=== PATIENT | female | born 1955 | race Caucasian/White ===

== ENCOUNTER 2017-08-28 17:05 | Inpatient (IN) ==
[2017-08-28] MEDS ORDERED: Ipratropium/Albuterol Neb 3 ML IH ONE (17:26)
[2017-08-28] MEDS ORDERED: Albuterol 2.5 MG/3 ML NEBULIZER IH ONE (17:26)
[2017-08-28] MEDS ORDERED: methylPREDNISolone 125 MG/2 ML VIAL IVP ONE (17:26)
--- NOTE | 2017-08-28 17:30 | Emergency Department Note ---
Disposition Clinical Impression: COPD exacerbation Pneumonia Qualifiers: Pneumonia type: due to unspecified organism Laterality: left Lung location: lower lobe of lung Qualified Code(s): J18.1 - Lobar pneumonia, unspecified organism Disposition: Admitted As Inpatient Condition: Good Time of Disposition: 19:43 SOB HPI - General Chief Complaint: ED Shortness of Breath/Dyspnea Stated Complaint: difficulty breathing Time Seen by Provider: 08/28/17 17:25 Source: patient, EMS Mode of arrival: ambulatory Limitations: no limitations Nursing Notes Reviewed: Yes Vital Signs Reviewed: Yes - History of Present Illness 62-year-old female with a history of COPD, atrial fibrillation, heart disease presents with a several month history of increasing difficulty breathing. She states is been going on for at least 2-3 months. She has a chronic cough. Her cough is nonproductive. She states she quit smoking 2 days ago. She denies chest pain. No fever. She has some mild leg swelling. She has a nebulizer at home but states she has not used it for a couple of days. She received a nebulizer treatment in route. No fever. Pt Subjective Complaint: shortness of breath, cough Onset (ago): month(s) (2-3) Severity: moderate Consistency/Duration: constant Improves with: oxygen, rest Worsens with: exertion, coughing Known history of: COPD Associated symptoms: Reports: denies other symptoms Treatment prior to arrival: oxygen, bronchodilator (Nebulizer squad) - Related Data Home Medications Medication Instructions Recorded Confirmed Albuterol Neb [Proventil Neb] 2.5 mg IH ONCE 07/06/15 08/28/17 Albuterol Sulfate [Ventolin Hfa] 18 gm IH 07/06/15 07/06/15 Ibuprofen [Motrin] 800 mg PO Q8HR 07/06/15 08/28/17 Montelukast [Singulair] 10 mg PO DAILY 07/06/15 08/28/17 Loratadine [Allergy Relief] 10 mg PO DAILY 12/09/16 08/28/17 Aspirin 81 mg PO DAILY 08/28/17 08/28/17 Cyclobenzaprine [Flexeril] 10 mg PO TID 08/28/17 08/28/17 Gabapentin [Neurontin] 300 mg PO TID 08/28/17 08/28/17 Metoprolol [Lopressor] 12.5 mg PO BID 08/28/17 08/28/17 Pravastatin Sodium [Pravachol] 20 mg PO DAILY 08/28/17 08/28/17 Topiramate [Topamax] 100 mg PO BID 08/28/17 08/28/17 Chantix Continuing Months Pack 1 mg PO DAILY 08/29/17 08/29/17 Previous Rx's Medication Instructions Recorded Albuterol Neb [Proventil Neb] 2.5 mg IH QID 2 Days inhsol 12/09/16 Allergies Allergy/AdvReac Type Severity Reaction Status Date / Time acetaminophen AdvReac Hallucinati Verified 08/28/17 17:06 [From Darvocet-N] ng duloxetine [From Cymbalta] AdvReac Nausea Verified 08/28/17 17:06 fentanyl AdvReac Vomiting Verified 08/28/17 17:06 propoxyphene AdvReac Hallucinati Verified 08/28/17 17:06 [From Darvocet-N] ng Sulfa (Sulfonamide AdvReac Rash Verified 08/28/17 17:06 Antibiotics) Tetracycline AdvReac Nausea Verified 08/28/17 17:06 All systems ED: reviewed and negative except as stated. Constitutional: Denies: fever, chills ENT ED: Denies: congestion Cardiovascular: Denies: chest pain, palpitations Respiratory: Reports: cough, dyspnea, wheezes. 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 Absent: scleral icterus - ENT ENT exam: normal oropharynx, mucous membranes moist - Neck Neck exam: Present: normal inspection, full ROM, trachea midline. Absent: lymphadenopathy - Chest Chest inspection: Present: normal inspection, symmetric chest wall rise - Respiratory Respiratory exam: Present: wheezes, prolonged expiratory phase (Moderate bilateral expiratory), other (Decreased breath sounds in the bases). Absent: respiratory distress - Cardiovascular Cardiovascular exam: Present: regular rate, normal rhythm. Absent: systolic murmur, diastolic murmur, gallop - Abdominal Exam Abdominal exam: Present: soft, Non-Tender, normal bowel sounds. Absent: organomegaly, mass - Extremities Exam Extremities exam: Present: normal inspection, full ROM, normal capillary refill. Absent: tenderness, pedal edema, calf tenderness - Neurological Exam Neurological exam: Present: alert, oriented X3, normal gait. Absent: motor sensory deficit - Psychiatric Psychiatric exam: Present: normal affect, normal mood - Skin Skin exam: Present: warm, dry, intact, normal color. Absent: cyanosis, diaphoresis Course - Reevaluation(s) Reevaluation #1: Improved. Still has significant wheezing. Would benefit from hospitalization. I discussed case with Dr. Miguel. He has accepted the patient for observation admission. Time: 19:41 Vital Signs Temperature 97.6 F 08/28/17 17:14 Pulse Rate 95 08/28/17 17:14 Respiratory Rate 24 08/28/17 17:14 Blood Pressure 101/77 08/28/17 17:14 O2 Sat by Pulse Oximetry 87 08/28/17 17:14 Temperature 97.9 F 08/29/17 00:02 Pulse Rate 99 08/29/17 00:02 Respiratory Rate 18 08/29/17 00:43 Blood Pressure 103/60 08/29/17 00:02 O2 Sat by Pulse Oximetry 89 08/29/17 00:43 Oxygen Delivery Oxygen Delivery Nasal Cannula Shortness of Breath/Dyspnea - [facility] Narrative Medical decision making narrative: Radiographically she has a left lower lobe infiltrate. Clinically she has pneumonia with a COPD exacerbation. I do not seen any evidence of cardiac issues. She is having no chest pain. She will be admitted for observation and further treatment. - Differential Diagnosis Likely: acute exacerbation of chronic obstructive airways disease, congestive heart failure, pneumonia, asthma with exacerbation, pulmonary embolism, pneumothorax, arrhythmia - Lab Data Lab results reviewed: Yes I reviewed the patient's lab results. Result diagrams: 08/28/17 17:44 08/28/17 17:44 Lab Results 08/28/17 08/28/17 08/28/17 Range/Units 17:44 17:44 17:44 WBC 7.5 (4.3-11.1) K/mcL RBC 5.30 H (3.82-4.97) M/mcL Hgb 16.2 H (11.5-15.4) g/dL Hct 48.3 H (35.3-44.9) % MCV 91.1 (83.0-100.0) fL MCH 30.6 (28.0-33.3) pg MCHC 33.5 (31.6-35.5) g/dL RDW 13.2 (11.5-14.5) % Plt Count 176 (140-400) K/mcL MPV 11.8 (9.4-12.4) fL Immature Gran % 0.5 (0-4) % Seg Neutrophils % 78.6 % Lymphocytes % 10.2 % Monocytes % 9.9 % Eosinophils % 0.1 % Basophils % 0.7 % Neutrophils # 5.9 (1.6-8.9) K/mcL Lymphocytes # 0.8 (0.6-4.6) K/mcL Monocytes # 0.7 (0.0-1.3) K/mcL Eosinophils # 0.0 (0.0-0.6) K/mcL Basophils # 0.1 (0.0-0.2) K/mcL Sodium 138 (136-145) mEq/L Potassium 3.4 L (3.5-4.5) mEq/L Chloride 109 (98-109) mEq/L Carbon Dioxide 17 L (19-29) mEq/L BUN 22 H (7-20) mg/dL Creatinine 0.91 (0.57-1.11) mg/dL Est GFR ( Amer) > 60 (> 60) Est GFR (Non-Af Amer) > 60 (> 60) BUN/Creatinine Ratio 24 (6-26) Glucose 130 H (70-99) mg/dL Calculated Osmolality 291 (280-300) Calcium 8.8 (8.6-10.8) mg/dL Total Bilirubin 0.5 (0.2-1.2) mg/dL AST 24 (5-34) Units/L ALT 10 (0-55) Units/L Alkaline Phosphatase 115 (38-126) Units/L Troponin I 0.02 (0-0.03) ng/mL B-Natriuretic Peptide (0-100) pg/mL Serum Total Protein 7.3 (6.0-8.3) g/dL Albumin 3.5 (3.5-5.0) g/dL Globulin 3.8 H (2.4-3.5) g/dL Albumin/Globulin Ratio 0.9 L (1.1-2.2) 12/18/17 Range/Units 17:44 WBC (4.3-11.1) K/mcL RBC (3.82-4.97) M/mcL Hgb (11.5-15.4) g/dL Hct (35.3-44.9) % MCV (83.0-100.0) fL MCH (28.0-33.3) pg MCHC (31.6-35.5) g/dL RDW (11.5-14.5) % Plt Count (140-400) K/mcL MPV (9.4-12.4) fL Immature Gran % (0-4) % Seg Neutrophils % % Lymphocytes % % Monocytes % % Eosinophils % % Basophils % % Neutrophils # (1.6-8.9) K/mcL Lymphocytes # (0.6-4.6) K/mcL Monocytes # (0.0-1.3) K/mcL Eosinophils # (0.0-0.6) K/mcL Basophils # (0.0-0.2) K/mcL Sodium (136-145) mEq/L Potassium (3.5-4.5) mEq/L Chloride (98-109) mEq/L Carbon Dioxide (19-29) mEq/L BUN (7-20) mg/dL Creatinine (0.57-1.11) mg/dL Est GFR ( Amer) (> 60) Est GFR (Non-Af Amer) (> 60) BUN/Creatinine Ratio (6-26) Glucose (70-99) mg/dL Calculated Osmolality (280-300) Calcium (8.6-10.8) mg/dL Total Bilirubin (0.2-1.2) mg/dL AST (5-34) Units/L ALT (0-55) Units/L Alkaline Phosphatase (38-126) Units/L Troponin I (0-0.03) ng/mL B-Natriuretic Peptide 197 H (0-100) pg/mL Serum Total Protein (6.0-8.3) g/dL Albumin (3.5-5.0) g/dL Globulin (2.4-3.5) g/dL Albumin/Globulin Ratio (1.1-2.2) - Radiology Data Radiology results reviewed: Yes I reviewed the patient's radiology results. Impressions Chest X-Ray 08/28/17 17:26 IMPRESSION: Left basilar airspace disease superimposed on diffuse fibrotic changes may represent atelectasis or pneumonia. D/ / Aaron Bojorquez MD / Aaron Bojorquez MD Interpreting Provider: Aaron Bojorquez MD - EKG Data EKG attestation: Yes I reviewed and interpreted this EKG. EKG results narrative: Sinus tachycardia, rate of 123, and a more ST segment depression in the inferior lateral leads. Rhythm strip shows sinus tachycardia with rate 123, ND interval 160 ms, QRS 78 ms with no other ectopy as interpreted by me. No old EKG available for comparison.
[2017-08-28 18:08] LABS: Basophils # 0.1 K/mcL (0.0-0.2); Basophils % 0.7 %; Eosinophils % 0.1 %; Hematocrit 48.3 % (35.3-44.9); Hemoglobin 16.2 g/dL (11.5-15.4); Immature Granulocytes % 0.5 % (0-4); Lymphocytes # 0.8 K/mcL (0.6-4.6); Lymphocytes % 10.2 %; Mean Corpuscular HGB Conc 33.5 g/dL (31.6-35.5); Mean Corpuscular Hemoglobin 30.6 pg (28.0-33.3); Mean Corpuscular Volume 91.1 fL (83.0-100.0); Mean Platelet Volume 11.8 fL (9.4-12.4); Monocytes # 0.7 K/mcL (0.0-1.3); Monocytes % 9.9 %; Neutrophils # 5.9 K/mcL (1.6-8.9); Platelet Count 176 K/mcL (140-400); Red Cell Distribution Width 13.2 % (11.5-14.5); Segmented Neutrophils % 78.6 %
[2017-08-28 18:26] LABS: Alanine Aminotransferase 10 Units/L (0-55); Albumin 3.5 g/dL (3.5-5.0); Albumin/Globulin Ratio 0.9 (1.1-2.2); Alkaline Phosphatase 115 Units/L (38-126); Aspartate Amino Transferase 24 Units/L (5-34); BUN/Creatinine Ratio 24 (6-26); Bilirubin,Total 0.5 mg/dL (0.2-1.2); Blood Urea Nitrogen 22 mg/dL (7-20); Calcium 8.8 mg/dL (8.6-10.8); Carbon Dioxide 17 mEq/L (19-29); Chloride 109 mEq/L (98-109); Globulin 3.8 g/dL (2.4-3.5); Glucose 130 mg/dL (70-99); Osmolality,Calculated 291 (280-300); Potassium 3.4 mEq/L (3.5-4.5); Sodium 138 mEq/L (136-145); Total Protein 7.3 g/dL (6.0-8.3); eGFR For African Americans > 60 (> 60); eGFR For Non-African Americans > 60 (> 60)
[2017-08-28] MEDS ORDERED: Azithromycin 500 MG in D5% in Water 250 ML IVPB ONE (18:59)
[2017-08-28] MEDS ORDERED: Acetaminophen 325 MG TABLET PO PRN (20:41)
[2017-08-28] MEDS ORDERED: Naloxone 0.4 MG/ML INJ IVP PRN (20:41)
[2017-08-28] MEDS: Topiramate 100 MG TABLET PO SCH (22:53)
[2017-08-28] MEDS: Gabapentin 300 MG CAPSULE PO SCH (22:53)
[2017-08-28] MEDS: methylPREDNISolone 125 MG/2 ML VIAL IVP SCH (23:01)
[2017-08-29] MEDS: Ibuprofen 800 MG TABLET PO SCH ×3 (00:35→18:39)
[2017-08-29] MEDS: Ipratropium/Albuterol Neb 3 ML IH SCH ×4 (00:43→14:43)
[2017-08-29] MEDS: *HR* Enoxaparin 40 MG/0.4 ML SYRINGE SQ SCH (05:50)
[2017-08-29] MEDS: methylPREDNISolone 125 MG/2 ML VIAL IVP SCH ×3 (05:51→21:00)
[2017-08-29] MEDS: Topiramate 100 MG TABLET PO SCH ×2 (08:47→19:56)
[2017-08-29] MEDS: Aspirin 81 MG TAB.CHEW PO SCH (08:47)
[2017-08-29] MEDS: Gabapentin 300 MG CAPSULE PO SCH ×3 (08:47→19:56)
[2017-08-29] MEDS ORDERED: Loratadine 10 MG TABLET PO SCH (09:00)
[2017-08-29] MEDS: Budesonide/Formoterol 160/4.5 MDI IH SCH ×2 (14:50→21:12)
--- NOTE | 2017-08-29 14:56 | Internal Med History&Physical ---
Date of Encounter: 08/29/17 Time of Encounter: 14:30 Assessment and Plan (1) COPD exacerbation Current visit: Yes Status: Acute She has been started on Rocephin and Zithromax. (2) Hypertension Current visit: Yes Status: Chronic Continue Metoprolol Qualifiers: Hypertension type: essential hypertension Qualified Code(s): I10 - Essential (primary) hypertension (3) Azotemia Current visit: Yes Status: Acute We will give IV fluids and recheck labs in a.m. (4) Hypokalemia Current visit: Yes Status: Acute We will give supplemental potassium and recheck labs in a.m. (5) Lung cancer Current visit: Yes Status: Acute Will order chest CT to further evaluate. Qualifiers: Laterality: unspecified laterality Lung location: unspecified part of lung Qualified Code(s): C34.90 - Malignant neoplasm of unspecified part of unspecified bronchus or lung Internal Medicine - H&P: HPI Chief complaint: Dyspnea Admitted From: Emergency Dept Plans for Post Hospital Care: Home History of present illness: Ms. Phillips is a 62 year old female who came to emergency room stating she had increasing dyspnea the past 3 months with notable worsening in the days leading up to coming to emergency room. She had minimal cough and no significant pain. She was evaluated in emergency room and felt have exacerbation of COPD. She was admitted to [facility] floor for ongoing care needs. Her respiratory history is significant for having smoked from age [age] a total of 47 years. She smoked up to 2 packs per day. She had pulmonary function tests several years ago and was told she had asthma, COPD, and chronic bronchitis. She was prescribed oxygen but states she only wears it when necessary. She admits she has not consistently taken all of her pulmonary regimen medications recently. Past Med Surg Social Fam HX - Past Medical History Medical history: atrial fibrillation, cancer, COPD, GERD, hypertension Psychiatric history: anxiety, depression, panic disorder - Past Surgical History Surgical History: cataract, cholecystectomy - Social History Smoking Status: Current every day smoker Packs per day: 3-4 cigs Smokeless Tobacco Status: No Alcohol use: none Drug use: none Internal Medicine - H&P: Meds Albuterol Neb [Proventil Neb] 2.5 mg IH ONCE 07/06/15 [History] Albuterol Sulfate [Ventolin Hfa] 18 gm IH 07/06/15 [History] Ibuprofen [Motrin] 800 mg PO Q8HR 07/06/15 [History] Montelukast [Singulair] 10 mg PO DAILY 07/06/15 [History] Albuterol Neb [Proventil Neb] 2.5 mg IH QID 2 Days inhsol 12/09/16 [Rx] Loratadine [Allergy Relief] 10 mg PO DAILY 12/09/16 [History] Aspirin 81 mg PO DAILY 08/28/17 [History] Cyclobenzaprine [Flexeril] 10 mg PO TID 08/28/17 [History] Gabapentin [Neurontin] 300 mg PO TID 08/28/17 [History] Metoprolol [Lopressor] 12.5 mg PO BID 08/28/17 [History] Pravastatin Sodium [Pravachol] 20 mg PO DAILY 08/28/17 [History] Topiramate [Topamax] 100 mg PO BID 08/28/17 [History] Chantix Continuing Months Pack 1 mg PO DAILY 08/29/17 [History] 3 Allergy/AdvReac Type Severity Reaction Status Date / Time acetaminophen AdvReac Hallucinati Verified 08/28/17 17:06 [From Darvocet-N] ng duloxetine [From Cymbalta] AdvReac Nausea Verified 08/28/17 17:06 fentanyl AdvReac Vomiting Verified 08/28/17 17:06 propoxyphene AdvReac Hallucinati Verified 08/28/17 17:06 [From Darvocet-N] ng Sulfa (Sulfonamide AdvReac Rash Verified 08/28/17 17:06 Antibiotics) Tetracycline AdvReac Nausea Verified 08/28/17 17:06 All Systems PM: A 10-system review of systems was performed and is negative for pertinent findings except as documented above in the HPI. Review of systems: Gen.: She states her weight has increased approximately 20 pounds in the past year Cardiovascular: She has history of hypertension and atrial fibrillation. She denies [place] heart failure DVT or pulmonary embolus. She is not on OAC for atrial fib Respiratory: As per history of present illness GI: She has had cholecystectomy. She denies disorders of her liver or exocrine pancreas : She denies disorders of her kidney or bladder Neurologic: She has frequent headaches. She has neuropathy and chronic low back pain. She denies large distribution strokes. 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 She did not have postoperative chemotherapy or XRT. She reports most recent CAT scan chest was one year ago. She has history of anemia. Psychiatric: She has anxiety and panic attacks. She denies other mental health issues Musk skeletal: She has spinal stenosis. She has DJD but no known gout or other bone joint or muscle disorders. - Constitutional Vitals: Temp Pulse Resp BP Pulse Ox 98.3 F 90 22 107/73 93 08/29/17 10:16 08/29/17 10:16 08/29/17 10:16 08/29/17 10:16 08/29/17 10:16 Exam: Gen.: She is a well developed well-nourished female sitting in bed who appears in minimal respiratory distress at present time HEENT: Head is atraumatic and normocephalic. Eyes: EOMI. There is no scleral icterus. Mouth: Mucosa is moist. Neck: Supple and nontender. There is no thyromegaly or adenopathy noted. Heart: Regular without murmurs gallops or ectopics Lungs: She has diminished breath sounds diffusely. No wheezes or crackles are heard. Abdomen: Soft and nontender. No masses or guarding noted. Extremities: There is no cyanosis edema or clubbing noted. Dorsalis pedis and posterior tibial pulses are 1-2 over 2 bilaterally. Neurologic: Mental status: She is talkative and a good historian. Cranial nerves: Smile is symmetric. Forehead wrinkles bilaterally. Tongue protrudes midline. EOMI. Motor: There is no pronator drift. Cerebellar: Bulgarian nose is intact bilaterally. Skin: Warm and dry Internal Med - H&P Results - Labs CBC & Chem 7: 08/28/17 17:44 08/28/17 17:44
--- NOTE | 2017-08-29 16:37 | Electrocardiograph Report ---
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
[2017-08-29] MEDS: 0.45 % Sodium Chloride w/KCl 20 MEQ/1,000 ML MLS IVC SCH (16:59)
[2017-08-29] MEDS: Nicotine 14 MG PATCH.TD24 TD SCH (18:39)
[2017-08-29] MEDS: Lactobacillus 1 EACH CAP.SPRINK PO SCH (19:56)
[2017-08-29] MEDS ORDERED: Azithromycin 500 MG in D5% in Water 250 ML IVPB SCH (20:00)
[2017-08-30] MEDS: 0.45 % Sodium Chloride w/KCl 20 MEQ/1,000 ML MLS IVC SCH (06:02)
[2017-08-30 06:03] LABS: Basophils % 0.1 %; Hematocrit 44.1 % (35.3-44.9); Hemoglobin 14.2 g/dL (11.5-15.4); Immature Granulocytes % 0.6 % (0-4); Lymphocytes # 0.7 K/mcL (0.6-4.6); Lymphocytes % 8.5 %; Mean Corpuscular HGB Conc 32.2 g/dL (31.6-35.5); Mean Corpuscular Hemoglobin 30.2 pg (28.0-33.3); Mean Corpuscular Volume 93.8 fL (83.0-100.0); Monocytes # 0.5 K/mcL (0.0-1.3); Monocytes % 5.7 %; Neutrophils # 7.1 K/mcL (1.6-8.9); Platelet Count 158 K/mcL (140-400); Red Cell Distribution Width 13.1 % (11.5-14.5); Segmented Neutrophils % 85.1 %
[2017-08-30] MEDS: *HR* Enoxaparin 40 MG/0.4 ML SYRINGE SQ SCH (06:04)
[2017-08-30] MEDS: methylPREDNISolone 125 MG/2 ML VIAL IVP SCH (06:05)
[2017-08-30 06:25] LABS: BUN/Creatinine Ratio 24 (6-26); Blood Urea Nitrogen 18 mg/dL (7-20); Calcium 8.4 mg/dL (8.6-10.8); Carbon Dioxide 23 mEq/L (19-29); Chloride 109 mEq/L (98-109); Glucose 125 mg/dL (70-99); Osmolality,Calculated 295 (280-300); Potassium 4.6 mEq/L (3.5-4.5); Sodium 141 mEq/L (136-145); eGFR For African Americans > 60 (> 60); eGFR For Non-African Americans > 60 (> 60)
[2017-08-30 06:48] LABS: Platelet Estimate Normal (Normal)
[2017-08-30] MEDS ORDERED: Nicotine 14 MG PATCH.TD24 TD SCH (09:00)
[2017-08-30] MEDS: Nicotine 14 MG PATCH.TD24 TD SCH (09:32)
[2017-08-30] MEDS: Topiramate 100 MG TABLET PO SCH ×2 (09:32→21:29)
[2017-08-30] MEDS: Gabapentin 300 MG CAPSULE PO SCH ×3 (09:33→21:29)
[2017-08-30] MEDS: Ibuprofen 800 MG TABLET PO SCH ×3 (09:33→16:58)
[2017-08-30] MEDS: Lactobacillus 1 EACH CAP.SPRINK PO SCH ×2 (09:33→21:29)
[2017-08-30] MEDS: Aspirin 81 MG TAB.CHEW PO SCH (09:33)
[2017-08-30] MEDS: Budesonide/Formoterol 160/4.5 MDI IH SCH ×2 (10:02→22:37)
--- NOTE | 2017-08-30 10:22 | Internal Med Progress Note ---
Date of Encounter: 08/30/17 Time of Encounter: 10:10 - Assessment and plan (1) COPD exacerbation Current Visit: Yes Status: Acute Assessment and plan: August 30. Continue Rocephin, Zithromax, and order nebulizer treatments as needed. We will discontinue Solu-Medrol. (2) Hypertension Current Visit: Yes Status: Chronic Assessment and plan: August 30. Blood pressure stable. Continue metoprolol. Qualifiers: Hypertension type: essential hypertension Qualified Code(s): I10 - Essential (primary) hypertension (3) Azotemia Current Visit: Yes Status: Acute Assessment and plan: August 30. Resolved. We will discontinue IV fluids. (4) Hypokalemia Current Visit: Yes Status: Acute Assessment and plan: August 30. Resolved. Will discontinue supplemental potassium. (5) Lung cancer Current Visit: Yes Status: Acute Assessment and plan: August 30. Chest CT showed no obvious malignancies although lymphadenopathy was noted. I discussed she could have repeat scan done in a few weeks to monitor the lymphadenopathy. Qualifiers: Laterality: unspecified laterality Lung location: unspecified part of lung Qualified Code(s): C34.90 - Malignant neoplasm of unspecified part of unspecified bronchus or lung - Subjective Interval history: August 30. She has no new complaints. She does not feel significantly improved. - Constitutional Vitals: Temp Pulse Resp BP Pulse Ox 97.4 F L 80 18 118/75 94 08/30/17 09:58 08/30/17 09:58 08/30/17 09:58 08/30/17 09:58 08/30/17 09:58 Exam: She is resting comfortably in bed and appears in no acute distress. Her affect is bright and cheerful. I reviewed her medications and lab results. Internal Medicine: Result - Labs CBC & Chem 7: 08/30/17 05:20 08/30/17 05:20 Labs: Short CBC 08/30/17 Range/Units 05:20 WBC 8.3 (4.3-11.1) K/mcL Hgb 14.2 D (11.5-15.4) g/dL Hct 44.1 (35.3-44.9) % Plt Count 158 (140-400) K/mcL Neutrophils # 7.1 (1.6-8.9) K/mcL BMP 08/30/17 05:20 Sodium 141 Potassium 4.6 H D Chloride 109 Carbon Dioxide 23 BUN 18 Creatinine 0.75 Glucose 125 H Calcium 8.4 L Consult Discharge Plan - Plan Referrals: Janet Mccray CNP [Primary Care Provider] - 1 week
[2017-08-30] MEDS ORDERED: Albuterol 2.5 MG/3 ML NEBULIZER IH PRN (10:24)
[2017-08-30] MEDS: Benzonatate 100 MG CAPSULE PO SCH ×2 (16:52→21:29)
[2017-08-31] MEDS: Ibuprofen 800 MG TABLET PO SCH ×2 (00:39→08:53)
[2017-08-31] MEDS: *HR* Enoxaparin 40 MG/0.4 ML SYRINGE SQ SCH (06:18)
[2017-08-31 06:45] VITALS: BP 106/67
[2017-08-31] MEDS: Nicotine 14 MG PATCH.TD24 TD SCH (08:50)
[2017-08-31] MEDS: Aspirin 81 MG TAB.CHEW PO SCH (08:51)
[2017-08-31] MEDS: Lactobacillus 1 EACH CAP.SPRINK PO SCH (08:51)
[2017-08-31] MEDS: Gabapentin 300 MG CAPSULE PO SCH ×2 (08:51→15:58)
[2017-08-31] MEDS: Benzonatate 100 MG CAPSULE PO SCH ×2 (08:58→15:58)
[2017-08-31] MEDS: Topiramate 100 MG TABLET PO SCH (08:58)
[2017-08-31] MEDS ORDERED: Saline Nasal Spray 44 ML BOTTLE NS PRN (09:00)
--- NOTE | 2017-08-31 10:18 | Discharge Summary ---
Date of Encounter: 08/31/17 Time of Encounter: 09:50 - Discharge Diagnosis (1) COPD exacerbation Priority: Primary Status: Acute (2) Hypertension Priority: Secondary Status: Chronic Qualifiers: Hypertension type: essential hypertension Qualified Code(s): I10 - Essential (primary) hypertension (3) Azotemia Priority: Secondary Status: Resolved (4) Hypokalemia Priority: Secondary Status: Resolved (5) Lung cancer Priority: Secondary Status: Acute Qualifiers: Laterality: unspecified laterality Lung location: unspecified part of lung Qualified Code(s): C34.90 - Malignant neoplasm of unspecified part of unspecified bronchus or lung - Discharge Medications Prescriptions: GuaiFENesin/Dextromethorphan [Robitussin/DM] 10 ml PO Q6HR #120 ml Cefuroxime PO [Ceftin] 500 mg PO Q12HR #6 tablet Azithromycin [Zithromax] 250 mg PO DAILY #3 tablet Lactobacillus [Culturelle] 1 each PO BID #6 cap.sprink Nicotine Patch [Nicoderm] 14 mg TD DAILY #28 patch.td24 Rivaroxaban [Xarelto] 20 mg PO DAILY #30 tablet Home Medications: Albuterol Neb [Proventil Neb] 2.5 mg IH ONCE 07/06/15 [History] Albuterol Sulfate [Ventolin Hfa] 18 gm IH 07/06/15 [History] Ibuprofen [Motrin] 800 mg PO Q8HR 07/06/15 [History] Montelukast [Singulair] 10 mg PO DAILY 07/06/15 [History] Albuterol Neb [Proventil Neb] 2.5 mg IH QID 2 Days inhsol 12/09/16 [Rx] Loratadine [Allergy Relief] 10 mg PO DAILY 12/09/16 [History] Aspirin 81 mg PO DAILY 08/28/17 [History] Cyclobenzaprine [Flexeril] 10 mg PO TID 08/28/17 [History] Gabapentin [Neurontin] 300 mg PO TID 08/28/17 [History] Metoprolol [Lopressor] 12.5 mg PO BID 08/28/17 [History] Pravastatin Sodium [Pravachol] 20 mg PO DAILY 08/28/17 [History] Topiramate [Topamax] 100 mg PO BID 08/28/17 [History] Chantix Continuing Months Pack 1 mg PO DAILY 08/29/17 [History] Azithromycin [Zithromax] 250 mg PO DAILY #3 tablet 08/31/17 [Rx] Cefuroxime PO [Ceftin] 500 mg PO Q12HR #6 tablet 08/31/17 [Rx] GuaiFENesin/Dextromethorphan [Robitussin/DM] 10 ml PO Q6HR #120 ml 08/31/17 [Rx] Lactobacillus [Culturelle] 1 each PO BID #6 cap.sprink 08/31/17 [Rx] Nicotine Patch [Nicoderm] 14 mg TD DAILY #28 patch.td24 08/31/17 [Rx] Rivaroxaban [Xarelto] 20 mg PO DAILY #30 tablet 08/31/17 [Rx] Allergies/Adverse Reactions: 3 Allergy/AdvReac Type Severity Reaction Status Date / Time acetaminophen AdvReac Hallucinati Verified 08/28/17 17:06 [From Darvocet-N] ng azithromycin [From Zithromax] AdvReac Rash Verified 08/31/17 07:54 duloxetine [From Cymbalta] AdvReac Nausea Verified 08/28/17 17:06 fentanyl AdvReac Vomiting Verified 08/28/17 17:06 propoxyphene AdvReac Hallucinati Verified 08/28/17 17:06 [From Darvocet-N] ng Sulfa (Sulfonamide AdvReac Rash Verified 08/28/17 17:06 Antibiotics) Tetracycline AdvReac Nausea Verified 08/28/17 17:06 Date of admission: 08/29/17 15:14 Primary care physician: Janet Mccray - Patient Status Disposition: Home, Self-Care Condition: Good Functional capacity at discharge: independent ambulation Overall status at discharge: patient is progressing back to baseline - Discharge Instructions Follow Up With: Janet Mccray, [employer] FINISHER [Primary Care Provider] - 1 week - Diet and Activity Activity: resume usual activities as tolerated, wear oxygen at all times Diet: advance to your usual diet Hospital course: Ms. Phillips is a 62 year old female who came to emergency room stating she had increasing dyspnea the past 3 months with notable worsening in the days leading up to coming to emergency room. She had minimal cough and no significant pain. She was evaluated in emergency room and felt have exacerbation of COPD. She was admitted to MedSurg floor for ongoing care needs. Initial orders were written by the emergency room physician. I saw her on August 29 and performed a history and physical. She was started on Rocephin and Zithromax. She had clinical improvement with less dyspnea. She remained afebrile during her hospital stay. A CT of chest was done to further evaluate her dyspnea with history of lung cancer. The chest CT showed bilateral symmetric interstitial fibrosis with basilar predominant groundglass densities possibly representing acute interstitial pneumonitis versus possible atypical infectious process. No lobar pneumonia was seen. There were nonspecific mildly enlarged mediastinal lymph nodes without definite thoracic metastatic disease. I told the patient she should have repeat CT scan done in 2-3 months to follow-up on the enlarged lymph nodes. Her PCP can order an outpatient CT of chest. She will continue with antibiotic and probiotic for 3 additional days at discharge. She was given supplemental potassium and hypokalemia resolved. She was given IV fluids and BUN and creatinine improved to 18 and 0.75 respectively by August 30. Hemoglobin decreased to 14.2 and WBC remained normal. On August 31 she felt she was stable for discharge home. She will follow with her PCP Janet Locke CNP within 1 week. I encouraged her to remain a nonsmoker. - Time Spent with Patient Total time spent providing and/or coordinating discharge services: - Constitutional Vitals: Temp Pulse Resp BP Pulse Ox 97.9 F 87 18 106/67 89 08/31/17 06:40 08/31/17 06:40 08/31/17 06:40 08/31/17 06:40 08/31/17 06:40
[2017-08-31] MEDS: Budesonide/Formoterol 160/4.5 MDI IH SCH (11:25)
== END 2017-08-31 16:59 | disposition home or self-care (01) | DRG 140 ==
LOC: INPPIK 17:05 → EMEROOPIK 17:05 → INPPIK 20:25
PROVIDERS: ADMIT Internal Medicine; ATTEND Internal Medicine

== ENCOUNTER 2018-05-04 16:10 | Inpatient (IN) ==
[2018-05-04] MEDS ORDERED: Vancomycin 1,000 MG VIAL IVPB ONE ×2 (16:56→19:56)
[2018-05-04] MEDS ORDERED: Ipratropium/Albuterol Neb 3 ML IH ONE (16:56)
[2018-05-04] MEDS ORDERED: 0.9 % Sodium Chloride 1,000 ML IVC ONE ×2 (16:56→20:52)
[2018-05-04] MEDS ORDERED: cefTRIAXone 1,000 MG in Water for inj. (sterile) 20 ML 10 ML IVP ONE (16:56)
[2018-05-04] MEDS ORDERED: Albuterol 2.5 MG/3 ML NEBULIZER IH ONE (16:56)
[2018-05-04] MEDS ORDERED: methylPREDNISolone 125 MG/2 ML VIAL IVP ONE (16:56)
--- NOTE | 2018-05-04 17:00 | Emergency Department Note ---
Disposition Clinical Impression: Acute exacerbation of chronic obstructive airways disease Congestive heart failure Qualifiers: Heart failure type: systolic Heart failure chronicity: chronic Qualified Code(s ): I50.22 - Chronic systolic (congestive) heart failure Disposition: Admitted As Inpatient Condition: Good Instructions: Chronic Obstructive Pulmonary Disease (ED) Referrals: Janet Mccray CNP [Primary Care Provider] - Forms: ED Satisfaction Letter Time of Disposition: 18:07 (Dr Miguel accepted her for IV ABX and monitoring her cardiopulmonary symptoms) SOB HPI - General Chief Complaint: ED Shortness of Breath/Dyspnea Stated Complaint: INCREASING SHORTNESS OF BREATH Source: patient Limitations: no limitations - History of Present Illness Patient is a pleasant 62-year-old female with past medical history significant for HTN, A fib, Dyslipidemia and COPD who is presenting to [facility] with a chief complaint off progressive shortness of breath in the past few days associated with increased body weight and bilateral lower extremity edema. She stated that she used several liter nasal cannula and this is her baseline. She states that she has cough nonproductive and since has been getting progressive in the past few days extended pounded her to come to the emergency room. She states that she is short of breath all the time even without exertion. Patient denies any fever, chills or night sweats. Pt also denies any eye pain or visual disturbances. There is no sore throat, nasal drainages or facial congestion. There is no chest pain, palpitations or racing heart. There is no abdominal pain, nausea, vomiting or diarrhea. There is no urgency, frequency or dysuria. There is no muskulo-skeletal pain, arthralgia or back pain. Patient also denies any rash, edema or pruritus. There is no neurological manifestations, no headache, no vertigo or weakness. The patient also denies any anxiety, depression, hallucinations and has no homicidal or suicidal ideations. There is no polyuria, polydipsia or recent weight change. There is no easy bruising or bleeding. Review of other systems is otherwise negative except above. Pt Subjective Complaint: shortness of breath Onset (ago): day(s) Context: recent illness Severity: moderate Consistency/Duration: intermittent Improves with: oxygen, rest, bronchodilators - Related Data Home Medications Medication Instructions Recorded Confirmed Loratadine [Allergy Relief] 10 mg PO DAILY 12/09/16 05/04/18 Aspirin 81 mg PO DAILY 08/28/17 05/04/18 Cyclobenzaprine [Flexeril] 10 mg PO TID 08/28/17 05/04/18 Metoprolol [Lopressor] 12.5 mg PO BID 08/28/17 05/04/18 Pravastatin Sodium [Pravachol] 20 mg PO DAILY 08/28/17 05/04/18 Topiramate [Topamax] 100 mg PO BID 08/28/17 05/04/18 Lisinopril [Zestril] 10 mg PO DAILY 02/27/18 05/04/18 Gabapentin [Neurontin] 600 mg PO TID 02/28/18 05/04/18 Ibuprofen [Ibu] 800 mg PO TID 02/28/18 05/04/18 Montelukast [Singulair] 10 mg PO DAILY 02/28/18 05/04/18 Omeprazole [PriLOSEC] 20 mg PO DAILY 02/28/18 05/04/18 Dapsone 100 mg PO DAILY 05/04/18 05/04/18 Fluticasone/Vilanterol [Breo 1 puff IH DAILY 05/04/18 05/04/18 Ellipta 100-25 Mcg INH] Guaifenesin [Mucinex] 600 mg PO Q12H PRN 05/04/18 05/04/18 predniSONE [PredniSONE] 10 mg PO DAILY 05/04/18 05/04/18 Previous Rx's Medication Instructions Recorded Furosemide [Lasix] 40 mg PO BID #60 tab 03/03/18 Allergies Allergy/AdvReac Type Severity Reaction Status Date / Time acetaminophen AdvReac Hallucinati Verified 08/28/17 17:06 [From Darvocet-N] ng azithromycin [From Zithromax] AdvReac Rash Verified 08/31/17 07:54 duloxetine [From Cymbalta] AdvReac Nausea Verified 08/28/17 17:06 fentanyl AdvReac Vomiting Verified 08/28/17 17:06 propoxyphene AdvReac Hallucinati Verified 08/28/17 17:06 [From Darvocet-N] ng Sulfa (Sulfonamide AdvReac Rash Verified 08/28/17 17:06 Antibiotics) Tetracycline AdvReac Nausea Verified 08/28/17 17:06 All systems ED: reviewed and negative except as stated. Review of Systems: As Per HPI Constitutional: Denies: fever, chills Eyes: Denies: eye pain, eye discharge ENT ED: Denies: ear pain, throat pain Cardiovascular: Denies: chest pain, palpitations Respiratory: Reports: cough, dyspnea, wheezes Gastrointestinal: Denies: abdominal pain, nausea Genitourinary: Denies: urgency, dysuria, frequency Musculoskeletal: Denies: back pain, neck pain Past Medical History - Past Medical History Medical history: Reports: arthritis, atrial fibrillation, cancer, CHF, COPD, GERD, hypertension Surgical history: Reports: cataract, cholecystectomy Psychiatric history: Reports: anxiety, depression, panic disorder [employer]ITY [employer]ESSION[employer] history: Reports: bilateral tubal ligation - Social History Smoking Status: Former smoker Smokeless Tobacco Status: No Alcohol use: Reports: none Drug use: Reports: none Physical Exam - General Limitations: no limitations General appearance: alert - Head Head exam: atraumatic, normocephalic, normal inspection - Eye Eye exam: Present: normal appearance, PERRL, EOMI - Expanded Eye Exam Pupils: Left: reactive - ENT ENT exam: normal exam, normal oropharynx, mucous membranes moist - Expanded ENT Exam External ear exam: Present: normal external inspection Mouth exam: Present: normal external inspection Teeth exam: Present: normal inspection Throat exam: Present: normal inspection - Neck Neck exam: Present: normal inspection, full ROM, trachea midline - Chest Chest inspection: Present: normal inspection, symmetric chest wall rise - Respiratory Respiratory exam: Present: normal lung sounds bilaterally, wheezes, prolonged expiratory phase, other (crackles) - Cardiovascular Cardiovascular exam: Present: tachycardia, irregular rhythm, normal heart sounds - Abdominal Exam Abdominal exam: Present: soft, Non-Tender. Absent: tenderness, distention, guarding, rebound, rigidity - Extremities Exam Extremities exam: Present: normal inspection, full ROM. Absent: tenderness, pedal edema - Expanded Upper Extremity Exam Shoulder exam: Present: normal inspection, full ROM Arm exam: Present: normal inspection, full ROM Elbow exam: Present: normal inspection, full ROM Forearm/Wrist exam: Present: normal inspection, full ROM Hand exam: Present: normal inspection, full ROM Vascular exam: Normal: capillary refill, radial pulse - Expanded Lower Extremity Exam Hip/Pelvis exam: Present: normal inspection, full ROM Upper leg exam: Present: normal inspection, full ROM Knee exam: Present: normal inspection, full ROM Lower leg exam: Present: normal inspection, full ROM Ankle exam: Present: normal inspection, full ROM Foot/toe exam: Present: normal inspection, full ROM, swelling Neurovascular/Tendon exam: Absent: motor deficit, sensory deficit, tendon deficit - Back Exam Back exam: Present: normal inspection, full ROM. Absent: tenderness - Neurological Exam Neurological exam: Present: alert, oriented X3 - Expanded Neurological Exam Patient oriented to: Present: person, place, time Coma Scale Eye Opening: Spontaneous Coma Scale Motor Response: Obeys Commands Coma Scale Verbal Response: Oriented Coma Scale Total: 15 - Psychiatric Psychiatric exam: Present: normal affect, normal mood - Skin Skin exam: Present: warm, dry, intact, normal color Course Vital Signs Temperature 98.2 F 05/04/18 16:19 Pulse Rate 101 05/04/18 16:19 Respiratory Rate 18 05/04/18 16:19 Blood Pressure 86/54 05/04/18 16:19 O2 Sat by Pulse Oximetry 88 05/04/18 16:19 Temperature 98.2 F 05/04/18 16:19 Pulse Rate 97 05/04/18 17:29 Respiratory Rate 16 05/04/18 17:29 Blood Pressure 124/51 05/04/18 17:29 O2 Sat by Pulse Oximetry 96 05/04/18 17:29 Oxygen Delivery Oxygen Delivery Aerosol Mask Shortness of Breath/Dyspnea - Differential Diagnosis Likely: acute exacerbation of chronic obstructive airways disease, congestive heart failure, pneumonia, pulmonary embolism - Medical Records Medical records reviewed: Yes I reviewed the patient's medical records. - Lab Data Lab results reviewed: Yes I reviewed the patient's lab results. Result diagrams: 05/04/18 17:25 05/04/18 17:25 Lab Results 05/04/18 05/04/18 05/04/18 Range/Units 17:25 17:25 17:25 WBC 13.6 H (4.3-11.1) K/mcL RBC 2.85 L (3.82-4.97) M/mcL Hgb 9.5 L (11.5-15.4) g/dL Hct 31.0 L (35.3-44.9) % MCV 108.8 H (83.0-100.0) fL MCH 33.3 (28.0-33.3) pg MCHC 30.6 L (31.6-35.5) g/dL RDW 16.3 H (11.5-14.5) % Plt Count 245 (140-400) K/mcL MPV 11.2 (9.4-12.4) fL Immature Gran % 2.3 (0-4) % Seg Neutrophils % 86.0 % Lymphocytes % 7.4 % Monocytes % 3.5 % Eosinophils % 0.4 % Basophils % 0.4 % Neutrophils # 11.7 H (1.6-8.9) K/mcL Lymphocytes # 1.0 (0.6-4.6) K/mcL Monocytes # 0.5 (0.0-1.3) K/mcL Eosinophils # 0.1 (0.0-0.6) K/mcL Basophils # 0.1 (0.0-0.2) K/mcL PT 10.8 (9.4-12.1) Seconds INR 1.0 APTT 28.4 (26.0-36.0) Seconds Sodium 140 (136-145) mEq/L Potassium 3.9 (3.5-5.1) mEq/L Chloride 103 (98-107) mEq/L Troponin I < 0.03 (< 0.04) ng/mL B-Natriuretic Peptide (Less than 100) pg/mL Urine Color (Yellow) Urine Clarity (Clear) Urine pH (5.0-8.0) pH Units Ur Specific [place] (1.010-1.025) Urine Protein (Neg-Trace) mg/dL Urine Glucose (UA) (Normal) mg/dL Urine Ketones (Negative) mg/dL Urine Blood (Negative) Urine Nitrite (Negative) Urine Bilirubin (Negative) Urine Urobilinogen (Normal) mg/dL Ur Leukocyte Esterase (Negative) 05/04/18 05/04/18 Range/Units 17:25 18:01 WBC (4.3-11.1) K/mcL RBC (3.82-4.97) M/mcL Hgb (11.5-15.4) g/dL Hct (35.3-44.9) % MCV (83.0-100.0) fL MCH (28.0-33.3) pg MCHC (31.6-35.5) g/dL RDW (11.5-14.5) % Plt Count (140-400) K/mcL MPV (9.4-12.4) fL Immature Gran % (0-4) % Seg Neutrophils % % Lymphocytes % % Monocytes % % Eosinophils % % Basophils % % Neutrophils # (1.6-8.9) K/mcL Lymphocytes # (0.6-4.6) K/mcL Monocytes # (0.0-1.3) K/mcL Eosinophils # (0.0-0.6) K/mcL Basophils # (0.0-0.2) K/mcL PT (9.4-12.1) Seconds INR APTT (26.0-36.0) Seconds Sodium (136-145) mEq/L Potassium (3.5-5.1) mEq/L Chloride (98-107) mEq/L Troponin I (< 0.04) ng/mL B-Natriuretic Peptide 62 (Less than 100) pg/mL Urine Color Yellow (Yellow) Urine Clarity Clear (Clear) Urine pH 5.5 (5.0-8.0) pH Units Ur Specific [place] 1.015 (1.010-1.025) Urine Protein Negative (Neg-Trace) mg/dL Urine Glucose (UA) Normal (Normal) mg/dL Urine Ketones Negative (Negative) mg/dL Urine Blood Negative (Negative) Urine Nitrite Negative (Negative) Urine Bilirubin Negative (Negative) Urine Urobilinogen Normal (Normal) mg/dL Ur Leukocyte Esterase Small H (Negative) - Radiology Data Radiology results reviewed: Yes I reviewed the patient's radiology results. - EKG Data EKG attestation: Yes I reviewed and interpreted this EKG.
[2018-05-04 17:34] LABS: Basophils # 0.1 K/mcL (0.0-0.2); Basophils % 0.4 %; Eosinophils # 0.1 K/mcL (0.0-0.6); Eosinophils % 0.4 %; Hemoglobin 9.5 g/dL (11.5-15.4); Immature Granulocytes % 2.3 % (0-4); Lymphocytes % 7.4 %; Mean Corpuscular HGB Conc 30.6 g/dL (31.6-35.5); Mean Corpuscular Hemoglobin 33.3 pg (28.0-33.3); Mean Corpuscular Volume 108.8 fL (83.0-100.0); Mean Platelet Volume 11.2 fL (9.4-12.4); Monocytes # 0.5 K/mcL (0.0-1.3); Monocytes % 3.5 %; Neutrophils # 11.7 K/mcL (1.6-8.9); Platelet Count 245 K/mcL (140-400); Red Blood Count 2.85 M/mcL (3.82-4.97); Red Cell Distribution Width 16.3 % (11.5-14.5)
[2018-05-04 17:42] LABS: Prothrombin Time 10.8 Seconds (9.4-12.1)
[2018-05-04 17:45] LABS: Activated Partial Thrombo Time 28.4 Seconds (26.0-36.0)
[2018-05-04 17:46] LABS: Chloride 103 mEq/L (98-107); Potassium 3.9 mEq/L (3.5-5.1); Sodium 140 mEq/L (136-145)
[2018-05-04 17:58] LABS: Troponin I < 0.03 ng/mL (< 0.04)
[2018-05-04 18:13] LABS: Bilirubin,Urine Negative (Negative); Blood,Urine Negative (Negative); Clarity,Urine Clear (Clear); Color,Urine Yellow (Yellow); Glucose,Urine (UA) Normal (Normal); Ketones,Urine Negative (Negative); Leukocyte Esterase,Urine Small (Negative); Nitrite,Urine Negative (Negative); PH,Urine 5.5 pH Units (5.0-8.0); Protein,Urine Negative (Neg-Trace); Specific Gravity,Urine 1.015 (1.010-1.025); Urobilinogen,Urine Normal (Normal)
[2018-05-04] MEDS ORDERED: Furosemide 40 MG/4 ML VIAL IVP ONE (18:16)
[2018-05-04] MEDS ORDERED: Levofloxacin 750 MG/150 ML 750 MG/150 ML BAG IVPB ONE (18:16)
[2018-05-04] MEDS ORDERED: Naloxone 0.4 MG/ML INJ IVP PRN ×2 (18:23→19:56)
[2018-05-04 18:35] LABS: Hyaline Casts,Urine Moderate per lpf (None-Few); RBC,Urine 0-3 per hpf (0-3); Squamous Epithelial Cell,Urine Few per lpf (None-Few); WBC,Urine 0-3 per hpf (0-3)
[2018-05-04] MEDS ORDERED: WATER FOR INJ IV ONE ×2 (18:39→19:56)
[2018-05-04] MEDS ORDERED: [UNRECOGNIZED DRUG - OTHER] IV ONE ×2 (18:39→19:56)
[2018-05-04] MEDS ORDERED: Albuterol 2.5 MG/3 ML NEBULIZER IH PRN (19:54)
[2018-05-04] MEDS ORDERED: Levofloxacin 500 MG/100 ML 500 MG/100 ML BAG IVPB ONE ×2 (19:54→22:00)
[2018-05-04] MEDS ORDERED: Furosemide 40 MG TABLET PO SCH (21:00)
[2018-05-04 21:47] LABS: Alanine Aminotransferase 11 Units/L (7-52); Albumin/Globulin Ratio 1.7 (1.1-2.2); Alkaline Phosphatase 70 Units/L (34-104); Aspartate Amino Transferase 13 Units/L (13-39); BUN/Creatinine Ratio 28 (6-26); Bilirubin,Direct 0.1 mg/dL (0.0-0.2); Bilirubin,Indirect 0.5 mg/dL (0.0-1.2); Bilirubin,Total 0.6 mg/dL (0.3-1.0); Blood Urea Nitrogen 30 mg/dL (8-23); Calcium 9.1 mg/dL (8.6-10.3); Carbon Dioxide 23 mEq/L (23-29); Globulin 2.4 g/dL (2.4-3.5); Glucose 131 mg/dL (70-105); Osmolality,Calculated 298 (280-300); Total Protein 6.4 g/dL (6.4-8.9); eGFR For Non-African Americans 52 (> 60)
[2018-05-04] MEDS: Ibuprofen 800 MG TABLET PO SCH (21:50)
[2018-05-04] MEDS: Gabapentin 300 MG CAPSULE PO SCH (21:52)
[2018-05-04] MEDS: Topiramate 100 MG TABLET PO SCH (21:52)
--- NOTE | 2018-05-04 23:24 | Internal Med History&Physical ---
Date of Encounter: 05/04/18 Time of Encounter: 22:55 Assessment and Plan (1) Septic shock Current visit: Yes Status: Acute Possibly secondary to pneumonia. She has been ordered antibiotics and fluid bolus. Repeat lactic acid level will be done and further workup and interventions as needed. (2) Pneumonia Current visit: No Status: Acute As above Qualifiers: Pneumonia type: due to unspecified organism Laterality: bilateral Lung location: lower lobe of lung Qualified Code(s): J18.1 - Lobar pneumonia, unspecified organism (3) Hypertension Current visit: No Status: Chronic Hold lisinopril and Lopressor since blood pressure borderline low. Qualifiers: Hypertension type: essential hypertension Qualified Code(s): I10 - Essential (primary) hypertension (4) Azotemia Current visit: No Status: Acute We will give IV fluids and withhold diuretics. Recheck labs in a.m. (5) PAF (paroxysmal atrial fibrillation) Current visit: No Status: Acute Continue aspirin. She has declined oral anticoagulation. (6) Pulmonary fibrosis Current visit: No Status: Acute Continue supplemental oxygen. Continue treatment for possible pneumonia as per above. (7) Acute exacerbation of chronic obstructive airways disease Current visit: Yes Status: Acute As above Internal Medicine - H&P: HPI Chief complaint: Dyspnea and edema Admitted From: Emergency Dept Plans for Post Hospital Care: Home History of present illness: Ms. Phillips is a 62 year old female who came to emergency room stating she had developed increased dyspnea approximately one week ago. There was minimal cough. She noticed edema in her legs over the last few days and felt she was developing facial edema today. She was evaluated in emergency room and felt to have exacerbation of COPD and was admitted to [facility] floor for ongoing care needs. Her respiratory history is significant for having smoked from age [age] total of 47 years. She quit smoking August 2017. She smoked up to 2 packs per day. She had PFTs several years ago was told she had asthma, COPD, and chronic bronchitis. She reports being hospitalized at [facility] a few months ago and was told she had pulmonary fibrosis and right-sided heart failure with pulmonary hypertension. She wears oxygen 03/04. 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 She did not have postoperative chemotherapy or XRT. Past Med Surg Social Fam HX - Past Medical History Medical history: arthritis, atrial fibrillation, cancer, CHF, COPD, GERD, hypertension Additional medical history: lung cancer Psychiatric history: anxiety, depression, panic disorder - Past Surgical History Surgical History: cataract, cholecystectomy Additional surgical history: TONSILLECTOMY. TEETH EXTRACTION. BREAST REDUCTION. lung surgery to remove cancer - Social History Smoking Status: Former smoker Smokeless Tobacco Status: No Alcohol use: none Drug use: none Internal Medicine - H&P: Meds Loratadine [Allergy Relief] 10 mg PO DAILY 12/09/16 [History] Aspirin 81 mg PO DAILY 08/28/17 [History] Cyclobenzaprine [Flexeril] 10 mg PO TID 08/28/17 [History] Metoprolol [Lopressor] 12.5 mg PO BID 08/28/17 [History] Pravastatin Sodium [Pravachol] 20 mg PO DAILY 08/28/17 [History] Topiramate [Topamax] 100 mg PO BID 08/28/17 [History] Lisinopril [Zestril] 10 mg PO DAILY 02/27/18 [History] Gabapentin [Neurontin] 600 mg PO TID 02/28/18 [History] Ibuprofen [Ibu] 800 mg PO TID 02/28/18 [History] Montelukast [Singulair] 10 mg PO DAILY 02/28/18 [History] Omeprazole [PriLOSEC] 20 mg PO DAILY 02/28/18 [History] Furosemide [Lasix] 40 mg PO BID #60 tab 03/03/18 [Rx] Dapsone 100 mg PO DAILY 05/04/18 [History] Fluticasone/Vilanterol [Breo Ellipta 100-25 Mcg INH] 1 puff IH DAILY 05/04/18 [ History] Guaifenesin [Mucinex] 600 mg PO Q12H PRN 05/04/18 [History] predniSONE [PredniSONE] 10 mg PO DAILY 05/04/18 [History] 3 Allergy/AdvReac Type Severity Reaction Status Date / Time acetaminophen AdvReac Hallucinati Verified 08/28/17 17:06 [From Darvocet-N] ng azithromycin [From Zithromax] AdvReac Rash Verified 08/31/17 07:54 duloxetine [From Cymbalta] AdvReac Nausea Verified 08/28/17 17:06 fentanyl AdvReac Vomiting Verified 08/28/17 17:06 propoxyphene AdvReac Hallucinati Verified 08/28/17 17:06 [From Jeremiast-N] ng Sulfa (Sulfonamide AdvReac Rash Verified 08/28/17 17:06 Antibiotics) Tetracycline AdvReac Nausea Verified 08/28/17 17:06 All Systems PM: A 10-system review of systems was performed and is negative for pertinent findings except as documented above in the HPI. Review of systems: Review of systems from her August 2017 [facility] hospitalization were reviewed and revised as below. Gen.: Her weight has decreased from 71.696 kg on 08/30/2017 to 67.585 kg at present. Cardiovascular: She has history of hypertension and atrial fibrillation. She denies PR heart failure DVT or pulmonary embolus. She has declined OAC for atrial fib because of history of epistaxis. Respiratory: As per history of present illness GI: She has had cholecystectomy. She denies disorders of her liver or exocrine pancreas : She denies disorders of her kidney or bladder Neurologic: She has frequent headaches. She has neuropathy and chronic low back pain. She denies large distribution strokes. 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 She did not have postoperative chemotherapy or XRT. Most recent chest CT was 02/27/2018 which showed no evidence of malignancy. She has history of anemia. Psychiatric: She has anxiety and panic attacks. She denies other mental health issues Musk skeletal: She has spinal stenosis. She has DJD but no known gout or other bone joint or muscle disorders. - Constitutional Vitals: Temp Pulse Resp BP Pulse Ox 97.4 F L 109 19 100/63 86 05/04/18 19:44 05/04/18 19:44 05/04/18 19:44 05/04/18 19:44 05/04/18 20:45 Exam: Gen.: She is a well-developed well-nourished female who appears in no acute distress at present time HEENT: Head is atraumatic and normocephalic. Eyes: EOMI. There is no scleral icterus. Mouth: Mucosa is moist. Neck: Supple and nontender. There is no thyromegaly or adenopathy noted. Heart: Regular without murmurs gallops or ectopics. Rate is approximately 104/ m. Lungs: She has diminished breath sounds diffusely. No wheezes or crackles are heard. Abdomen: Soft and nontender. No masses or guarding are noted. Extremities: There is no cyanosis edema or clubbing noted. Dorsalis pedis and posttibial pulses are trace palpable bilaterally. Her feet are warm to touch. Neurologic: Mental status: She is talkative and a good historian. Cranial nerves: Smile is symmetric. Forehead wrinkles wrinkles bilaterally. Tongue protrudes midline. EOMI. Motor: There is no pronator drift. Cerebellar: Finger to nose is intact bilaterally. Skin: Warm and dry Internal Med - H&P Results - Labs CBC & Chem 7: 05/04/18 17:25 05/04/18 17:25 Labs: Cardiac Enzymes 05/04/18 Range/Units 18:39 Troponin I < 0.03 (< 0.04) ng/mL
[2018-05-05] MEDS: 0.9 % Sodium Chloride 1,000 ML IVC SCH ×2 (03:40→14:08)
[2018-05-05 07:18] LABS: Basophils % 0.2 %; Eosinophils % 0.1 %; Hematocrit 28.1 % (35.3-44.9); Hemoglobin 8.7 g/dL (11.5-15.4); Immature Granulocytes % 2.1 % (0-4); Lymphocytes # 1.4 K/mcL (0.6-4.6); Lymphocytes % 11.1 %; Mean Corpuscular Hemoglobin 34.1 pg (28.0-33.3); Mean Corpuscular Volume 110.2 fL (83.0-100.0); Mean Platelet Volume 10.7 fL (9.4-12.4); Monocytes # 0.9 K/mcL (0.0-1.3); Monocytes % 7.2 %; Neutrophils # 10.1 K/mcL (1.6-8.9); Platelet Count 258 K/mcL (140-400); Red Blood Count 2.55 M/mcL (3.82-4.97); Red Cell Distribution Width 16.3 % (11.5-14.5); Segmented Neutrophils % 79.3 %
[2018-05-05 07:33] LABS: Prothrombin Time 11.5 Seconds (9.4-12.1)
[2018-05-05 07:35] LABS: Activated Partial Thrombo Time 26.9 Seconds (26.0-36.0)
[2018-05-05] MEDS: Ibuprofen 800 MG TABLET PO SCH ×2 (07:38→14:10)
[2018-05-05] MEDS: Topiramate 100 MG TABLET PO SCH ×2 (07:39→20:13)
[2018-05-05] MEDS: predniSONE 10 MG TABLET PO SCH (07:39)
[2018-05-05] MEDS: Aspirin 81 MG TAB.CHEW PO SCH (07:39)
[2018-05-05] MEDS: Gabapentin 300 MG CAPSULE PO SCH ×2 (07:39→14:10)
[2018-05-05 07:42] LABS: Alanine Aminotransferase 10 Units/L (7-52); Albumin 3.7 g/dL (3.5-5.7); Albumin/Globulin Ratio 1.8 (1.1-2.2); Alkaline Phosphatase 65 Units/L (34-104); Aspartate Amino Transferase 13 Units/L (13-39); BUN/Creatinine Ratio 24 (6-26); Bilirubin,Total 0.4 mg/dL (0.3-1.0); Blood Urea Nitrogen 25 mg/dL (8-23); Calcium 8.3 mg/dL (8.6-10.3); Carbon Dioxide 26 mEq/L (23-29); Chloride 107 mEq/L (98-107); Chol/HDL Ratio 2.8 (0-4.9); Cholesterol 136 mg/dL (< 200); Globulin 2.1 g/dL (2.4-3.5); Glucose 109 mg/dL (70-105); HDL Cholesterol 49 mg/dL (40-59); LDL Cholesterol,Calculated 55 mg/dL (0-99); Magnesium 2.2 mg/dL (1.6-2.6); Osmolality,Calculated 303 (280-300); Potassium 4.3 mEq/L (3.5-5.1); Sodium 144 mEq/L (136-145); Total Protein 5.8 g/dL (6.4-8.9); Triglycerides 162 mg/dL (< 150); eGFR For Non-African Americans 54 (> 60)
[2018-05-05] MEDS ORDERED: Loratadine 10 MG TABLET PO SCH (09:00)
[2018-05-05 09:01] LABS: Anisocytosis 2+ (Not Present)
[2018-05-05 09:02] LABS: Macrocytosis Present (Not Present); Microcytosis Present (Not Present); Polychromasia 1+ (Not Present); Toxic Granulation Present (Not Present)
[2018-05-05 09:31] LABS: Thyroid Stimulating Hormone 0.819 mcIU/mL (0.340-5.600)
[2018-05-05 10:47] LABS: Folate 14.4 ng/mL (3.0-16.0)
[2018-05-05] MEDS: Albuterol 2.5 MG/3 ML NEBULIZER IH PRN (13:23)
--- NOTE | 2018-05-05 15:44 | Internal Med Progress Note ---
Date of Encounter: 05/05/18 Time of Encounter: 15:35 - Assessment and plan (1) Septic shock Current Visit: Yes Status: Acute Assessment and plan: May 05. Possibly secondary to pneumonia. Labs show improvement trends. Continue antibiotics, probiotics, and other interventions. (2) Pneumonia Current Visit: No Status: Acute Assessment and plan: May 05. As above Qualifiers: Pneumonia type: due to unspecified organism Laterality: bilateral Lung location: lower lobe of lung Qualified Code(s): J18.1 - Lobar pneumonia, unspecified organism (3) Hypertension Current Visit: No Status: Chronic Assessment and plan: May 05. Continue to hold lisinopril and Lopressor for borderline low blood pressure. Qualifiers: Hypertension type: essential hypertension Qualified Code(s): I10 - Essential (primary) hypertension (4) Azotemia Current Visit: No Status: Acute Assessment and plan: May 05. Minimally changed. Continue IV fluids and withholding diuretics. (5) PAF (paroxysmal atrial fibrillation) Current Visit: No Status: Acute Assessment and plan: May 05. Cardiology consult of 02/28/2018 reviewed with freedom of information officer stating no EKGs could be located showing atrial fibrillation. Continue aspirin. (6) Pulmonary fibrosis Current Visit: No Status: Acute Assessment and plan: May 05. PFTs 12/09/2016 showed FEV1/FVC of 77% with FVC 76%. MVV 77%. TLC 88%. DLCO 23%. (7) Anemia Current Visit: Yes Status: Acute Assessment and plan: May 05. Anemia testing showed iron 67, transferrin saturation 21%, transferrin 228, ferritin 265, B12 198, and folate 14.4. She will receive B12 injection and start oral supplement. Qualifiers: Anemia type: unspecified type Qualified Code(s): D64.9 - Anemia, unspecified - Subjective Interval history: May 05. She has no new complaints. - Constitutional Vitals: Temp Pulse Resp BP Pulse Ox 98.6 F 99 17 78/48 93 05/05/18 15:25 05/05/18 15:25 05/05/18 15:25 05/05/18 15:26 05/05/18 15:25 Exam: She is sitting comfortably in bed wearing oxygen by [employer]. Her lungs show a few his story crackles at the posterior bases bilaterally that do not clear completely with coughing. No expiratory wheezing is heard. I reviewed her medications. I discussed pertinent lab results with her. Internal Medicine: Result - Labs CBC & Chem 7: 05/05/18 07:08 05/05/18 07:08 Labs: Short CBC 05/05/18 Range/Units 07:08 WBC 12.7 H (4.3-11.1) K/mcL Hgb 8.7 L (11.5-15.4) g/dL Hct 28.1 L (35.3-44.9) % Plt Count 258 (140-400) K/mcL Neutrophils # 10.1 H (1.6-8.9) K/mcL BMP 05/05/18 07:08 Sodium 144 Potassium 4.3 Chloride 107 Carbon Dioxide 26 BUN 25 H Creatinine 1.03 Glucose 109 H Calcium 8.3 L Cardiac Enzymes 05/05/18 05/05/18 Range/Units 00:32 07:08 Troponin I < 0.03 < 0.03 (< 0.04) ng/mL Liver Function 05/05/18 Range/Units 07:08 Total Bilirubin 0.4 (0.3-1.0) mg/dL AST 13 (13-39) Units/L ALT 10 (7-52) Units/L Alkaline Phosphatase 65 (34-104) Units/L Albumin 3.7 (3.5-5.7) g/dL - ABG Interpretation ABG results: PT/INR, D-dimer PT 11.5 Seconds (9.4-12.1) 05/05/18 07:08 Consult Discharge Plan - Plan Referrals: Janet Mccray, BETSY [Primary Care Provider] - 1 week
[2018-05-05] MEDS ORDERED: Cyanocobalamin (B-12) 1,000 MCG/ML VIAL IM ONE (15:51)
[2018-05-05] MEDS: Levofloxacin 500 MG/100 ML 500 MG/100 ML BAG IVPB SCH (16:41)
[2018-05-05] MEDS: cefTRIAXone 1,000 MG in Water for inj. (sterile) 20 ML 10 ML IVP SCH (16:43)
[2018-05-05] MEDS: Lactobacillus 1 EACH CAP.SPRINK PO SCH (20:13)
[2018-05-06] MEDS: 0.9 % Sodium Chloride 1,000 ML IVC SCH ×2 (01:23→16:36)
[2018-05-06 06:49] LABS: Basophils % 0.3 %; Eosinophils # 0.2 K/mcL (0.0-0.6); Eosinophils % 1.2 %; Hematocrit 26.8 % (35.3-44.9); Hemoglobin 8.2 g/dL (11.5-15.4); Immature Granulocytes % 1.7 % (0-4); Lymphocytes # 4.4 K/mcL (0.6-4.6); Lymphocytes % 30.4 %; Mean Corpuscular HGB Conc 30.6 g/dL (31.6-35.5); Mean Corpuscular Hemoglobin 34.6 pg (28.0-33.3); Mean Corpuscular Volume 113.1 fL (83.0-100.0); Mean Platelet Volume 11.4 fL (9.4-12.4); Monocytes # 0.9 K/mcL (0.0-1.3); Monocytes % 6.5 %; Neutrophils # 8.7 K/mcL (1.6-8.9); Platelet Count 244 K/mcL (140-400); Red Blood Count 2.37 M/mcL (3.82-4.97); Red Cell Distribution Width 16.4 % (11.5-14.5); Segmented Neutrophils % 59.9 %
[2018-05-06 07:03] LABS: BUN/Creatinine Ratio 23 (6-26); Blood Urea Nitrogen 21 mg/dL (8-23); Calcium 8.4 mg/dL (8.6-10.3); Carbon Dioxide 27 mEq/L (23-29); Chloride 108 mEq/L (98-107); Glucose 99 mg/dL (70-105); Osmolality,Calculated 293 (280-300); Potassium 3.9 mEq/L (3.5-5.1); Sodium 140 mEq/L (136-145); eGFR For Non-African Americans > 60 (> 60)
[2018-05-06 08:34] LABS: Anisocytosis 1+ (Not Present); Macrocytosis Present (Not Present)
[2018-05-06] MEDS: Aspirin 81 MG TAB.CHEW PO SCH (09:38)
[2018-05-06] MEDS: Gabapentin 300 MG CAPSULE PO SCH ×3 (09:39→21:14)
[2018-05-06] MEDS: predniSONE 10 MG TABLET PO SCH (09:40)
[2018-05-06] MEDS: Topiramate 100 MG TABLET PO SCH ×2 (09:40→21:15)
[2018-05-06] MEDS: Cyanocobalamin (B-12) 1,000 MCG TABLET PO SCH (09:40)
[2018-05-06] MEDS: Lactobacillus 1 EACH CAP.SPRINK PO SCH ×2 (09:40→21:14)
--- NOTE | 2018-05-06 10:14 | Internal Med Progress Note ---
Date of Encounter: 05/06/18 Time of Encounter: 10:05 - Assessment and plan (1) Septic shock Current Visit: Yes Status: Acute Assessment and plan: May 05. Possibly secondary to pneumonia. Labs show improvement trends. Continue antibiotics, probiotics, and other interventions. May 06. WBC minimally higher but left shift has resolved. Continue antibiotics and probiotics (2) Pneumonia Current Visit: No Status: Acute Assessment and plan: May 05. As above Qualifiers: Pneumonia type: due to unspecified organism Laterality: bilateral Lung location: lower lobe of lung Qualified Code(s): J18.1 - Lobar pneumonia, unspecified organism (3) Hypertension Current Visit: No Status: Chronic Assessment and plan: May 05. Continue to hold lisinopril and Lopressor for borderline low blood pressure. Qualifiers: Hypertension type: essential hypertension Qualified Code(s): I10 - Essential (primary) hypertension (4) Azotemia Current Visit: No Status: Acute Assessment and plan: May 05. Minimally changed. Continue IV fluids and withholding diuretics. May 06. Resolved. BUN and creatinine are 21 and 0.92 respectively with estimated GFR greater than 60. Discontinue IV fluids. Remain off Lasix and lisinopril. (5) PAF (paroxysmal atrial fibrillation) Current Visit: No Status: Acute Assessment and plan: May 05. Cardiology consult of 02/28/2018 reviewed with electric motor repairing supervisor stating no EKGs could be located showing atrial fibrillation. Continue aspirin. May 06. Hemoglobin has decreased further to 8.2. Hold aspirin for now. (6) Pulmonary fibrosis Current Visit: No Status: Acute Assessment and plan: May 05. PFTs 12/09/2016 showed FEV1/FVC of 77% with FVC 76%. MVV 77%. TLC 88%. DLCO 23%. (7) Anemia Current Visit: Yes Status: Acute Assessment and plan: May 05. Anemia testing showed iron 67, transferrin saturation 21%, transferrin 228, ferritin 265, B12 198, and folate 14.4. She will receive B12 injection and start oral supplement. May 06. Hemoglobin has decreased further to 8.2. Hold aspirin and discontinue IV fluids. Qualifiers: Anemia type: unspecified type Qualified Code(s): D64.9 - Anemia, unspecified (8) Weakness Current Visit: Yes Status: Acute Assessment and plan: May 06. Will order PT and OT evaluations. - Subjective Interval history: May 05. She has no new complaints. May 06. She has no new complaints - Constitutional Vitals: Temp Pulse Resp BP Pulse Ox 98.1 F 82 17 96/55 93 05/06/18 06:31 05/06/18 09:23 05/06/18 06:31 05/06/18 09:23 05/06/18 09:23 Exam: She is resting comfortably in bed and appears in no acute distress. Her affect is bright and cheerful. She is not dyspneic on conversation. I reviewed her medications and lab results. Internal Medicine: Result - Labs CBC & Chem 7: 05/06/18 05:03 05/06/18 05:03 Labs: Short CBC 05/06/18 Range/Units 05:03 WBC 14.5 H (4.3-11.1) K/mcL Hgb 8.2 L (11.5-15.4) g/dL Hct 26.8 L (35.3-44.9) % Plt Count 244 (140-400) K/mcL Neutrophils # 8.7 (1.6-8.9) K/mcL BMP 05/06/18 05:03 Sodium 140 Potassium 3.9 Chloride 108 H Carbon Dioxide 27 BUN 21 Creatinine 0.92 Glucose 99 Calcium 8.4 L - ABG Interpretation ABG results: PT/INR, D-dimer PT 11.5 Seconds (9.4-12.1) 05/05/18 07:08 Consult Discharge Plan - Plan Referrals: Janet Mccray, OFFSET ASSISTANT PRESS OPERATOR [Primary Care Provider] - 1 week
[2018-05-06] MEDS: Acetaminophen 325 MG TABLET PO PRN ×2 (15:55→22:46)
[2018-05-06] MEDS: cefTRIAXone 1,000 MG in Water for inj. (sterile) 20 ML 10 ML IVP SCH (15:56)
[2018-05-06] MEDS: Levofloxacin 500 MG/100 ML 500 MG/100 ML BAG IVPB SCH (16:04)
[2018-05-07 05:28] LABS: Basophils # 0.1 K/mcL (0.0-0.2); Basophils % 0.5 %; Eosinophils # 0.2 K/mcL (0.0-0.6); Eosinophils % 1.6 %; Hematocrit 28.3 % (35.3-44.9); Hemoglobin 8.7 g/dL (11.5-15.4); Lymphocytes # 4.3 K/mcL (0.6-4.6); Lymphocytes % 32.6 %; Mean Corpuscular HGB Conc 30.7 g/dL (31.6-35.5); Mean Corpuscular Hemoglobin 34.1 pg (28.0-33.3); Mean Platelet Volume 11.3 fL (9.4-12.4); Monocytes # 0.9 K/mcL (0.0-1.3); Monocytes % 7.1 %; Neutrophils # 7.4 K/mcL (1.6-8.9); Platelet Count 231 K/mcL (140-400); Red Blood Count 2.55 M/mcL (3.82-4.97); Red Cell Distribution Width 15.6 % (11.5-14.5); Segmented Neutrophils % 56.2 %
[2018-05-07 06:00] LABS: BUN/Creatinine Ratio 19 (6-26); Blood Urea Nitrogen 19 mg/dL (8-23); Calcium 8.8 mg/dL (8.6-10.3); Carbon Dioxide 27 mEq/L (23-29); Chloride 108 mEq/L (98-107); Glucose 85 mg/dL (70-105); Osmolality,Calculated 294 (280-300); Potassium 3.9 mEq/L (3.5-5.1); Sodium 141 mEq/L (136-145); eGFR For Non-African Americans 55 (> 60)
[2018-05-07 06:11] LABS: Anisocytosis 1+ (Not Present); Basophilic Stippling 1+ (Not Present); Platelet Estimate Normal (Normal); Polychromasia 1+ (Not Present)
[2018-05-07] MEDS: Albuterol 2.5 MG/3 ML NEBULIZER IH PRN (08:45)
[2018-05-07 09:11] VITALS: BP 102/54
[2018-05-07] MEDS: Lactobacillus 1 EACH CAP.SPRINK PO SCH (09:12)
[2018-05-07] MEDS: Topiramate 100 MG TABLET PO SCH (09:13)
[2018-05-07] MEDS: Cyanocobalamin (B-12) 1,000 MCG TABLET PO SCH (09:14)
[2018-05-07] MEDS: predniSONE 10 MG TABLET PO SCH (09:14)
[2018-05-07] MEDS: Gabapentin 300 MG CAPSULE PO SCH ×2 (09:14→17:42)
--- NOTE | 2018-05-07 10:21 | Discharge Summary ---
Date of Encounter: 05/07/18 Time of Encounter: 10:05 - Discharge Diagnosis (1) Septic shock Priority: Primary Status: Resolved (2) Pneumonia Priority: Secondary Status: Acute Qualifiers: Pneumonia type: due to unspecified organism Laterality: bilateral Lung location: lower lobe of lung Qualified Code(s): J18.1 - Lobar pneumonia, unspecified organism (3) Pulmonary fibrosis Priority: Secondary Status: Chronic (4) Hypertension Priority: Secondary Status: Chronic Qualifiers: Hypertension type: essential hypertension Qualified Code(s): I10 - Essential (primary) hypertension (5) Azotemia Priority: Secondary Status: Acute (6) PAF (paroxysmal atrial fibrillation) Priority: Secondary Status: Acute (7) Anemia Priority: Secondary Status: Acute Qualifiers: Anemia type: unspecified type Qualified Code(s): D64.9 - Anemia, unspecified (8) Weakness Priority: Secondary Status: Acute Hospital course: Ms. Phillips is a 62 year old female who came to emergency room stating she had developed increased dyspnea approximately one week ago. There was minimal cough. She noticed edema in her legs over the last few days and felt she was developing facial edema today. She was evaluated in emergency room and felt to have exacerbation of COPD and was admitted to [facility] floor for ongoing care needs. Initial orders were written by the emergency room physician. I saw her on May 04 and performed the history and physical. She was given antibiotics and IV fluid boluses. WBC remained slightly elevated at 13.1 on day of discharge. Left shift on differential had resolved. She remained afebrile and was stable for discharge on May 07. She will continue with antibiotic and probiotic for 3 additional days at discharge. Antihypertensive medication was discontinued because of hypotension. Her blood pressure improved off these but was still borderline low frequently. She will remain off these at discharge. She continue with supplemental oxygen 24/7 during hospitalization. Her oxygen saturations ranged from 87-91% at rest on day of discharge. I reviewed past PFTs with her and explained that she did not have evidence of COPD/emphysema but had significant decrease in DLCO. Anemia testing showed iron 67, transferrin saturation 21%, transferrin 228, ferritin 265, B12 198, and folate 14.4. She was given a B12 injection will continue with oral B12 supplement discharge. TSH was normal at 0.819. On May 07 she was stable for discharge home. She will follow with her PCP Janet Mccray CNP within 1 week. - Time Spent with Patient Total time spent providing and/or coordinating discharge services: - Discharge Medications Prescriptions: Cefuroxime PO [Ceftin] 500 mg PO Q12HR #6 tablet Cyanocobalamin (B-12) [Vitamin B12] 1,000 mcg PO DAILY #30 tablet Lactobacillus [Culturelle] 1 each PO BID #6 cap.sprink levoFLOXacin [Levaquin] 500 mg PO DAILY #3 tablet Home Medications: Cyclobenzaprine [Flexeril] 10 mg PO TID 08/28/17 [History] Pravastatin Sodium [Pravachol] 20 mg PO DAILY 08/28/17 [History] Topiramate [Topamax] 100 mg PO BID 08/28/17 [History] Gabapentin [Neurontin] 600 mg PO TID 02/28/18 [History] Montelukast [Singulair] 10 mg PO DAILY 02/28/18 [History] Omeprazole [PriLOSEC] 20 mg PO DAILY 02/28/18 [History] Dapsone 100 mg PO DAILY 05/04/18 [History] Fluticasone/Vilanterol [Breo Ellipta 100-25 Mcg INH] 1 puff IH DAILY 05/04/18 [ History] Guaifenesin [Mucinex] 600 mg PO Q12H PRN 05/04/18 [History] predniSONE [PredniSONE] 10 mg PO DAILY 05/04/18 [History] Cefuroxime PO [Ceftin] 500 mg PO Q12HR #6 tablet 05/07/18 [Rx] Cyanocobalamin (B-12) [Vitamin B12] 1,000 mcg PO DAILY #30 tablet 05/07/18 [Rx] Lactobacillus [Culturelle] 1 each PO BID #6 cap.sprink 05/07/18 [Rx] levoFLOXacin [Levaquin] 500 mg PO DAILY #3 tablet 05/07/18 [Rx] Allergies/Adverse Reactions: 3 Allergy/AdvReac Type Severity Reaction Status Date / Time acetaminophen AdvReac Hallucinati Verified 08/28/17 17:06 [From Darvocet-N] ng azithromycin [From Zithromax] AdvReac Rash Verified 08/31/17 07:54 duloxetine [From Cymbalta] AdvReac Nausea Verified 12/18/17 17:06 fentanyl AdvReac Vomiting Verified 08/28/17 17:06 propoxyphene AdvReac Hallucinati Verified 08/28/17 17:06 [From Yusuf] ng Sulfa (Sulfonamide AdvReac Rash Verified 08/28/17 17:06 Antibiotics) Tetracycline AdvReac Nausea Verified 08/28/17 17:06 Date of admission: 05/04/18 23:25 Primary care physician: Janet Mccray Consults: 05/06/18 10:17 Consult to Occupational Therapy [CONS] Routine Comment: Evaluate, develop and implement POC Reason for Consult: Weakness Does patient have active BEDREST order?: No Is patient medically & hemodynamically stable?: Yes Patient assessed for mobility or mobilized this visit?: Yes Consult to Physical Therapy [CONS] Routine Comment: Evaluate, develop and implement POC Reason for Consult: Weakness Does patient have active BEDREST order?: No Is patient medically & hemodynamically stable?: Yes Patient assessed for mobility or mobilized this visit?: Yes - Constitutional Vitals: Temp Pulse Resp BP Pulse Ox 98.0 F 91 18 102/54 90 05/07/18 07:08 05/07/18 07:08 05/07/18 08:45 05/07/18 09:10 05/07/18 09:10 - Patient Status Disposition: Home, Self-Care Condition: Good - Discharge Instructions Follow Up With: Janet Mccray, RESERVOIR ENGINEERING MANAGER [Primary Care Provider] - 1 week - Diet and Activity Activity: resume usual activities as tolerated, wear oxygen at all times Diet: advance to your usual diet
--- NOTE | 2018-05-07 10:32 | Physician Discharge Referral ---
Home Health/Hosp Referral Info Transfer to: Home Health Attending Provider: Lamont Provider in Charge Post Discharge: PCP Stephanie) - Diagnosis (1) Septic shock Priority: Primary Status: Resolved (2) Pneumonia Priority: Secondary Status: Acute (3) Pulmonary fibrosis Priority: Secondary Status: Chronic (4) Hypertension Priority: Secondary Status: Chronic (5) Azotemia Priority: Secondary Status: Acute (6) PAF (paroxysmal atrial fibrillation) Priority: Secondary Status: Acute (7) Anemia Priority: Secondary Status: Acute (8) Weakness Priority: Secondary Status: Acute - Respiratory Orders Oxygen / L per min (O2 5+ l/m by NC to keep sat 90%) Smoking Cessation: Smoking cessation has been advised. For more information, call the [place] Tobacco Quit Line at 7-280-MZGK-NOW. - Diet/Nutrition Diet/Nutrition Orders: Regular - Activity Activity Orders: Walker - Services Needed Following services are medically necessary services: Nursing, Home Health Aide, Physical Therapy, Occupational Therapy - Transfer Medications Prescriptions: Cefuroxime PO [Ceftin] 500 mg PO Q12HR #6 tablet Cyanocobalamin (B-12) [Vitamin B12] 1,000 mcg PO DAILY #30 tablet Lactobacillus [Culturelle] 1 each PO BID #6 cap.sprink levoFLOXacin [Levaquin] 500 mg PO DAILY #3 tablet Home Medications: Cyclobenzaprine [Flexeril] 10 mg PO TID 08/28/17 [History] Pravastatin Sodium [Pravachol] 20 mg PO DAILY 08/28/17 [History] Topiramate [Topamax] 100 mg PO BID 08/28/17 [History] Gabapentin [Neurontin] 600 mg PO TID 02/28/18 [History] Montelukast [Singulair] 10 mg PO DAILY 02/28/18 [History] Omeprazole [PriLOSEC] 20 mg PO DAILY 02/28/18 [History] Dapsone 100 mg PO DAILY 05/04/18 [History] Fluticasone/Vilanterol [Breo Ellipta 100-25 Mcg INH] 1 puff IH DAILY 05/04/18 [ History] Guaifenesin [Mucinex] 600 mg PO Q12H PRN 05/04/18 [History] predniSONE [PredniSONE] 10 mg PO DAILY 05/04/18 [History] Cefuroxime PO [Ceftin] 500 mg PO Q12HR #6 tablet 05/07/18 [Rx] Cyanocobalamin (B-12) [Vitamin B12] 1,000 mcg PO DAILY #30 tablet 05/07/18 [Rx] Lactobacillus [Culturelle] 1 each PO BID #6 cap.sprink 05/07/18 [Rx] levoFLOXacin [Levaquin] 500 mg PO DAILY #3 tablet 05/07/18 [Rx] Allergies/Adverse Reactions: 3 Allergy/AdvReac Type Severity Reaction Status Date / Time acetaminophen AdvReac Hallucinati Verified 08/28/17 17:06 [From Darvocet-N] ng azithromycin [From Zithromax] AdvReac Rash Verified 08/31/17 07:54 duloxetine [From Cymbalta] AdvReac Nausea Verified 08/28/17 17:06 fentanyl AdvReac Vomiting Verified 08/28/17 17:06 propoxyphene AdvReac Hallucinati Verified 08/28/17 17:06 [From Darvocet-N] ng Sulfa (Sulfonamide AdvReac Rash Verified 08/28/17 17:06 Antibiotics) Tetracycline AdvReac Nausea Verified 08/28/17 17:06 Certification: Further, I certify that my clinical findings support that this patient is homebound (i.e. absences from home require considerable and taxing effort and are for medical reasons or spiritism services or infrequently or short duration when for other reasons) because: Homebound Reason: Leaving home requires considerable and taxing effort due to condition (Severe dyspnea on exertion with hypoxemia) Attestation: My signature below is to certify that this patient is under my care and that I, or nurse practitioner, or a physician's automotive parts counter assistant working with me, has a face-to -face encounter with this patient.
--- NOTE | 2018-05-07 17:33 | Electrocardiograph Report ---
[address] [address] Test Date: 2018-05-04 Pat Name: Nunu Phillips Department: [id number] Room: [facility] Gender: F Survey Party Chief: [id number] : 1955 Requested By: Lucinda Fuller Order Number: [id number] Reading MD: Babak Dugan Measurements Intervals [place] Rate: 98 P: 33 WA: 160 QRS: 84 QRSD: 80 T: -1 QT: 331 QTc: 387 Interpretive Statements SINUS RHYTHM WITH OCCASIONAL SUPRAVENTRICULAR PREMATURE COMPLEXES Electronically Signed On 05-07-2018 17:31:26 EDT by Babak Dugan
[2018-05-07] MEDS: cefTRIAXone 1,000 MG in Water for inj. (sterile) 20 ML 10 ML IVP SCH (18:12)
[2018-05-07] MEDS: Levofloxacin 500 MG/100 ML 500 MG/100 ML BAG IVPB SCH (18:12)
== END 2018-05-07 19:23 | disposition home or self-care (01) | DRG 720 ==
LOC: INPPIK 16:10 → EMEROOPIK 16:10 → INPPIK 19:43
PROVIDERS: ADMIT Internal Medicine; ATTEND Internal Medicine

== ENCOUNTER 2018-05-31 16:09 | Observation (INO) ==
[2018-05-31] MEDS ORDERED: Aspirin 81 MG TAB.CHEW PO STA (16:14)
[2018-05-31] MEDS ORDERED: 0.9 % Sodium Chloride 1,000 ML IVC SCH ×2 (16:15→18:55)
--- NOTE | 2018-05-31 16:17 | Emergency Department Note ---
Disposition Clinical Impression: Chest pain Disposition: Admitted As Inpatient Condition: Good Chest Pain HPI - General Chief Complaint: ED Chest Pain Stated Complaint: chest pain Time Seen by Provider: 05/31/18 16:12 Source: patient Mode of arrival: EMS Limitations: no limitations Vital Signs Reviewed: Yes Nursing Notes Reviewed: Yes - History of Present Illness HPI Narrative: Patient with heartburn lasting about 10 minutes this afternoon. Was in her chest midsternal region radiating to her back. She recently had pneumonia and his been coughing a little bit. She denies any fevers or chills chest pain heartburn or any other complaints the present time. Her family members and home health nurse encouraged her to come the hospital. Onset (ago): Just [employer]EL[employer]ODUCTION [employer] COMBINATION Duration: now resolved Onset: during rest Pain Location: substernal Severity: moderate Quality: other (burning) Improves with: nothing Worsens with: nothing Associated symptoms: Reports: dyspnea. Denies: nausea, vomiting, diaphoresis Treatments prior to arrival chest pain: none - Related Data Home Medications Medication Instructions Recorded Confirmed Cyclobenzaprine [Flexeril] 10 mg PO TID 08/28/17 05/31/18 Pravastatin Sodium [Pravachol] 20 mg PO DAILY 08/28/17 05/31/18 Topiramate [Topamax] 100 mg PO BID 08/28/17 05/31/18 Gabapentin [Neurontin] 600 mg PO TID 02/28/18 05/31/18 Montelukast [Singulair] 10 mg PO DAILY 02/28/18 05/31/18 Omeprazole [PriLOSEC] 20 mg PO DAILY 02/28/18 05/31/18 Guaifenesin [Mucinex] 600 mg PO Q12H PRN 05/04/18 05/31/18 predniSONE [PredniSONE] 10 mg PO DAILY 05/04/18 05/31/18 Budesonide/Formoterol 80/4.5 2 puff IH BID 05/31/18 05/31/18 [Symbicort 80/4.5] hydrOXYzine HCl [Hydroxyzine HCl] 25 mg PO TID PRN 05/31/18 05/31/18 Previous Rx's Medication Instructions Recorded Cyanocobalamin (B-12) [Vitamin B12] 1,000 mcg PO DAILY #30 tablet 05/07/18 Allergies Allergy/AdvReac Type Severity Reaction Status Date / Time acetaminophen AdvReac Hallucinati Verified 08/28/17 17:06 [From Darvocet-N] ng azithromycin [From Zithromax] AdvReac Rash Verified 08/31/17 07:54 duloxetine [From Cymbalta] AdvReac Nausea Verified 08/28/17 17:06 fentanyl AdvReac Vomiting Verified 08/28/17 17:06 propoxyphene AdvReac Hallucinati Verified 08/28/17 17:06 [From Darvocet-N] ng Sulfa (Sulfonamide AdvReac Rash Verified 08/28/17 17:06 Antibiotics) Tetracycline AdvReac Nausea Verified 08/28/17 17:06 All systems ED: reviewed and negative except as stated. Review of Systems: As Per HPI Constitutional: Denies: fever, chills, weakness, weight change Eyes: Denies: eye pain, eye discharge, vision change ENT ED: Denies: ear pain, throat pain, dental pain, hearing loss, epistaxis, congestion, dysphagia Cardiovascular: Reports: as per HPI, chest pain. Denies: palpitations, dyspnea on exertion, edema, syncope Respiratory: Reports: as per HPI, cough Gastrointestinal: Denies: abdominal pain, nausea, vomiting, diarrhea, constipation, hematemesis, melena, hematochezia Genitourinary: Denies: dysuria, frequency, hematuria, discharge Musculoskeletal: Denies: back pain, neck pain, arthralgia, myalgia Integumentary: Denies: rash, abrasion, lesions Neurological: Denies: headache, weakness, numbness, paresthesias, confusion, abnormal gait, vertigo Psychiatric: Denies: anxiety, depression, suicidal thoughts, homicidal thoughts , auditory hallucinations, visual hallucinations Endocrine: Reports: as per HPI Hematological/Lymphatic: Denies: easy bleeding, easy bruising Allergic/Immunologic: Denies: facial swelling, urticaria Chest Pain PMH - Past Medical History Medical history: Reports: arthritis, atrial fibrillation, cancer, CHF, COPD, GERD, hypertension Surgical history: Reports: cataract, cholecystectomy Psychiatric history: Reports: anxiety, depression, panic disorder 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 - Social History Smoking Status: Former smoker Alcohol use: Reports: none Drug use: Reports: none Physical Exam - General Limitations: no limitations General appearance: alert, in no apparent distress - Head Head exam: atraumatic, normocephalic, normal inspection - Eye Eye exam: Present: normal appearance, PERRL, EOMI - ENT ENT exam: normal exam, normal oropharynx, mucous membranes moist - Neck Neck exam: Present: normal inspection, full ROM, trachea midline - Chest Chest inspection: Present: normal inspection - Respiratory Respiratory exam: Present: normal lung sounds bilaterally - Cardiovascular Cardiovascular exam: Present: regular rate, normal rhythm, normal heart sounds - Abdominal Exam Abdominal exam: Present: soft, Non-Tender. Absent: tenderness, distention, guarding, rebound, rigidity - Extremities Exam Extremities exam: Present: normal inspection, full ROM. Absent: tenderness, pedal edema - Neurological Exam Neurological exam: Present: alert, oriented X3 - Psychiatric Psychiatric exam: Present: normal affect, normal mood - Skin Skin exam: Present: warm, dry, intact Chest Pain - MDM Narrative Medical decision making narrative: I reviewed the patient's medication list Case was discussed with Dr. Mgiuel who is graciously accepted the patient's admission - Lab Data Lab results reviewed: Yes I reviewed the patient's lab results. - Radiology Data Radiology results reviewed: Yes I reviewed the patient's radiology results. - EKG Data EKG attestation: Yes I reviewed and interpreted this EKG. EKG results narrative: EKG shows sinus rhythm with borderline right axis deviation. No significant changes from April of this year. Rate is 88 bpm AR interval 162 ms. QRS duration 78 ms QT interval 331 ms QTc interval 377 ms. R axis of 98 degrees
[2018-05-31 16:36] LABS: Basophils # 0.1 K/mcL (0.0-0.2); Basophils % 0.4 %; Eosinophils % 0.1 %; Hematocrit 41.8 % (35.3-44.9); Hemoglobin 13.2 g/dL (11.5-15.4); Immature Granulocytes % 1.8 % (0-4); Lymphocytes # 1.2 K/mcL (0.6-4.6); Lymphocytes % 8.6 %; Mean Corpuscular HGB Conc 31.6 g/dL (31.6-35.5); Mean Corpuscular Hemoglobin 33.7 pg (28.0-33.3); Mean Corpuscular Volume 106.6 fL (83.0-100.0); Mean Platelet Volume 10.9 fL (9.4-12.4); Monocytes # 0.4 K/mcL (0.0-1.3); Monocytes % 2.9 %; Platelet Count 254 K/mcL (140-400); Red Blood Count 3.92 M/mcL (3.82-4.97); Red Cell Distribution Width 12.2 % (11.5-14.5); Segmented Neutrophils % 86.2 %
[2018-05-31 16:52] LABS: Alanine Aminotransferase 13 Units/L (7-52); Albumin 3.9 g/dL (3.5-5.7); Albumin/Globulin Ratio 1.7 (1.1-2.2); Alkaline Phosphatase 63 Units/L (34-104); Aspartate Amino Transferase 14 Units/L (13-39); BUN/Creatinine Ratio 27 (6-26); Bilirubin,Total 0.2 mg/dL (0.3-1.0); Blood Urea Nitrogen 30 mg/dL (8-23); Calcium 9.3 mg/dL (8.6-10.3); Carbon Dioxide 27 mEq/L (23-29); Chloride 105 mEq/L (98-107); Globulin 2.3 g/dL (2.4-3.5); Glucose 123 mg/dL (70-105); Osmolality,Calculated 300 (280-300); Potassium 4.2 mEq/L (3.5-5.1); Sodium 141 mEq/L (136-145); Total Protein 6.2 g/dL (6.4-8.9); eGFR For Non-African Americans 48 (> 60)
[2018-05-31 16:56] LABS: Troponin I < 0.03 ng/mL (< 0.04)
[2018-05-31] MEDS ORDERED: hydrOXYzine pamoate 25 MG CAPSULE PO PRN (18:55)
[2018-05-31] MEDS ORDERED: Naloxone 0.4 MG/ML INJ IVP PRN (18:55)
[2018-05-31] MEDS: Gabapentin 300 MG CAPSULE PO SCH (21:04)
[2018-05-31] MEDS: Topiramate 100 MG TABLET PO SCH (21:04)
[2018-05-31] MEDS: Budesonide/Formoterol 80/4.5 MDI IH SCH (21:43)
[2018-06-01 05:24] LABS: Basophils # 0.1 K/mcL (0.0-0.2); Basophils % 0.4 %; Eosinophils # 0.1 K/mcL (0.0-0.6); Eosinophils % 0.3 %; Hematocrit 39.7 % (35.3-44.9); Hemoglobin 12.5 g/dL (11.5-15.4); Immature Granulocytes % 1.2 % (0-4); Lymphocytes # 3.1 K/mcL (0.6-4.6); Mean Corpuscular HGB Conc 31.5 g/dL (31.6-35.5); Mean Corpuscular Hemoglobin 33.8 pg (28.0-33.3); Mean Corpuscular Volume 107.3 fL (83.0-100.0); Mean Platelet Volume 11.4 fL (9.4-12.4); Monocytes # 1.8 K/mcL (0.0-1.3); Monocytes % 9.8 %; Neutrophils # 12.9 K/mcL (1.6-8.9); Platelet Count 241 K/mcL (140-400); Segmented Neutrophils % 71.3 %
[2018-06-01 05:44] LABS: BUN/Creatinine Ratio 32 (6-26); Blood Urea Nitrogen 28 mg/dL (8-23); Carbon Dioxide 30 mEq/L (23-29); Chloride 106 mEq/L (98-107); Glucose 93 mg/dL (70-105); Osmolality,Calculated 301 (280-300); Potassium 3.9 mEq/L (3.5-5.1); Sodium 143 mEq/L (136-145); eGFR For Non-African Americans > 60 (> 60)
[2018-06-01] MEDS: Gabapentin 300 MG CAPSULE PO SCH ×3 (09:22→20:08)
[2018-06-01] MEDS: Topiramate 100 MG TABLET PO SCH ×2 (09:23→20:07)
[2018-06-01] MEDS: Cyanocobalamin (B-12) 1,000 MCG TABLET PO SCH (09:23)
[2018-06-01] MEDS: predniSONE 10 MG TABLET PO SCH (09:23)
[2018-06-01] MEDS: Budesonide/Formoterol 80/4.5 MDI IH SCH ×2 (09:37→21:10)
--- NOTE | 2018-06-01 12:07 | Internal Med History&Physical ---
Date of Encounter: 06/01/18 Time of Encounter: 11:25 Assessment and Plan (1) Chest pain Current visit: Yes Status: Acute Now resolved. Repeat cardiac enzymes were ordered through emergency room Qualifiers: Chest pain type: unspecified Qualified Code(s): R07.9 - Chest pain, unspecified (2) Azotemia Current visit: No Status: Acute Creatinine was 1.13 in emergency room. Improved to 0.88 today following IV fluids administration. Continue to monitor. (3) Pulmonary fibrosis Current visit: No Status: Chronic Continue prednisone and 24/7 oxygen Internal Medicine - H&P: HPI Chief complaint: Chest discomfort Admitted From: Emergency Dept Plans for Post Hospital Care: Home History of present illness: Ms. Phillips is a 62 year old female who came to emergency room at the insistence of family members after she told them she had developed some discomfort in her chest earlier in the day. She described it as he most " severe heartburn" she had ever experienced. She reports it lasted approximately 10 minutes. She took her usual daily dose of Prilosec with gradual relief. Family was concerned so she came to emergency room although she was asymptomatic by then. Evaluation showed leukocytosis with left shift. She was admitted to [facility] floor for ongoing care needs. She reports she has had a cough with green sputum over the last few days. Her respiratory history is significant for having smoked from age [age] total of 47 years. She quit smoking August 2017. She smoked up to 2 packs per day. She had PFTs several years ago was told she had asthma, COPD, and chronic bronchitis. I reviewed the PFT data from 12/09/2016 and told her she had normal FEV1/FVC but had significant decrease in DLCO consistent with pulmonary fibrosis. She reports being hospitalized at [facility] a few months ago and was told she had pulmonary fibrosis and right-sided heart failure with pulmonary hypertension. She wears oxygen 24/7. 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 She did not have postoperative chemotherapy or XRT. Past Med Surg Social Fam HX - Past Medical History Medical history: arthritis, atrial fibrillation, cancer, CHF, COPD, GERD, hypertension Additional medical history: left upper lobe cancer surgery, pulmonary fibrosis, pulmonary hypertension Psychiatric history: anxiety, depression, panic disorder - Past Surgical History Surgical History: cataract, cholecystectomy Additional surgical history: bilat breast reduction, teeth extraction, tubal - Social History Smoking Status: Former smoker Smokeless Tobacco Status: No Alcohol use: none Drug use: none Internal Medicine - H&P: Meds Cyclobenzaprine [Flexeril] 10 mg PO TID 08/28/17 [History] Pravastatin Sodium [Pravachol] 20 mg PO DAILY 08/28/17 [History] Topiramate [Topamax] 100 mg PO BID 08/28/17 [History] Gabapentin [Neurontin] 600 mg PO TID 02/28/18 [History] Montelukast [Singulair] 10 mg PO DAILY 02/28/18 [History] Omeprazole [PriLOSEC] 20 mg PO DAILY 02/28/18 [History] Guaifenesin [Mucinex] 600 mg PO Q12H PRN 05/04/18 [History] predniSONE [PredniSONE] 10 mg PO DAILY 05/04/18 [History] Cyanocobalamin (B-12) [Vitamin B12] 1,000 mcg PO DAILY #30 tablet 05/07/18 [Rx] Budesonide/Formoterol 80/4.5 [Symbicort 80/4.5] 2 puff IH BID 05/31/18 [History ] hydrOXYzine HCl [Hydroxyzine HCl] 25 mg PO TID PRN 05/31/18 [History] 3 Allergy/AdvReac Type Severity Reaction Status Date / Time acetaminophen AdvReac Hallucinati Verified 08/28/17 17:06 [From Darvocet-N] ng azithromycin [From Zithromax] AdvReac Rash Verified 08/31/17 07:54 duloxetine [From Cymbalta] AdvReac Nausea Verified 08/28/17 17:06 fentanyl AdvReac Vomiting Verified 08/28/17 17:06 propoxyphene AdvReac Hallucinati Verified 08/28/17 17:06 [From Darvocet-N] ng Sulfa (Sulfonamide AdvReac Rash Verified 08/28/17 17:06 Antibiotics) Tetracycline AdvReac Nausea Verified 08/28/17 17:06 All Systems PM: A 10-system review of systems was performed and is negative for pertinent findings except as documented above in the HPI. Review of systems: Review of systems from her April 2018 [facility] hospitalization were reviewed and revised as below. Gen.: Her weight decreased from 71.696 kg on 08/30/2017 to 67.585 kg April 2018 but increased to 72.631 kg now Cardiovascular: She has history of hypertension and atrial fibrillation. She denies PA heart failure DVT or pulmonary embolus. She has declined OAC for atrial fib because of history of epistaxis. She reports epistaxis has been present approximately 8 months since she started using oxygen 03/04. Respiratory: As per history of present illness GI: She has had cholecystectomy. She denies disorders of her liver or exocrine pancreas : She denies disorders of her kidney or bladder Neurologic: She has frequent headaches. She has neuropathy and chronic low back pain. She denies large distribution strokes. 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 She did not have postoperative chemotherapy or XRT. Most recent chest CT was 02/27/2018 which showed no evidence of malignancy. She has history of anemia with workup 05/05/2018 showing B12 198. She was started on B12 supplement following a single IM injection. Anemia has resolved on current labs. Psychiatric: She has anxiety and panic attacks. She denies other mental health issues Musk skeletal: She has spinal stenosis. She has DJD but no known gout or other bone joint or muscle disorders. - Constitutional Vitals: Temp Pulse Resp BP Pulse Ox 97.8 F 99 20 132/74 89 06/01/18 10:33 06/01/18 10:33 06/01/18 10:33 06/01/18 10:33 06/01/18 10:33 Exam: Gen.: She is a well-developed well-nourished female resting in bed who appears slightly dyspneic but in no acute distress. She denies heartburn at this time HEENT: Head is atraumatic and normocephalic. Eyes: EOMI. There is no scleral icterus. Mouth: Mucosa is moist. Neck: Supple and nontender. There is no thyromegaly or adenopathy noted. Heart: Regular without murmurs gallops or ectopics Lungs: No wheezes or crackles are heard. Diminished breath sounds diffusely. Abdomen: Soft and nontender. No masses or guarding are noted. Extremities: She has no pitting edema of her ankles. She has mild DJD changes of her hands. Neurologic: Mental status: She is talkative and a good historian. Cranial nerves: Smile is symmetric. Forehead wrinkles bilaterally. Tongue protrudes midline. EOMI. Motor: There is no pronator drift. Cerebellar: Finger to nose is intact bilaterally. Skin: Warm and dry Internal Med - H&P Results - Labs CBC & Chem 7: 06/01/18 04:36 06/01/18 04:36 Labs: Short CBC 06/01/18 Range/Units 04:36 WBC 18.1 H (4.3-11.1) K/mcL Hgb 12.5 (11.5-15.4) g/dL Hct 39.7 (35.3-44.9) % Plt Count 241 (140-400) K/mcL Neutrophils # 12.9 H (1.6-8.9) K/mcL BMP 06/01/18 04:36 Sodium 143 Potassium 3.9 Chloride 106 Carbon Dioxide 30 H BUN 28 H Creatinine 0.88 Glucose 93 Calcium 9.0 Cardiac Enzymes 05/31/18 06/01/18 06/01/18 Range/Units 22:54 04:36 10:16 Troponin I < 0.03 < 0.03 < 0.03 (< 0.04) ng/mL
[2018-06-01] MEDS: levoFLOXacin 500 MG TABLET PO SCH (13:24)
--- NOTE | 2018-06-01 17:11 | Electrocardiograph Report ---
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
[2018-06-01] MEDS: Lactobacillus 1 EACH CAP.SPRINK PO SCH (20:07)
[2018-06-01] MEDS ORDERED: Loratadine 10 MG TABLET PO ONE (20:29)
[2018-06-01] MEDS: SPIRIVA 18 MCG IH SCH (21:11)
[2018-06-02] MEDS: SPIRIVA 18 MCG IH SCH (05:59)
[2018-06-02 06:12] LABS: Basophils # 0.1 K/mcL (0.0-0.2); Basophils % 0.6 %; Eosinophils # 0.1 K/mcL (0.0-0.6); Eosinophils % 0.9 %; Hematocrit 38.2 % (35.3-44.9); Hemoglobin 12.2 g/dL (11.5-15.4); Immature Granulocytes % 1.7 % (0-4); Lymphocytes # 3.7 K/mcL (0.6-4.6); Lymphocytes % 29.8 %; Mean Corpuscular HGB Conc 31.9 g/dL (31.6-35.5); Mean Corpuscular Hemoglobin 34.2 pg (28.0-33.3); Monocytes # 1.1 K/mcL (0.0-1.3); Monocytes % 8.5 %; Neutrophils # 7.3 K/mcL (1.6-8.9); Platelet Count 218 K/mcL (140-400); Red Blood Count 3.57 M/mcL (3.82-4.97); Red Cell Distribution Width 11.9 % (11.5-14.5); Segmented Neutrophils % 58.5 %
[2018-06-02 06:49] LABS: BUN/Creatinine Ratio 26 (6-26); Blood Urea Nitrogen 25 mg/dL (8-23); Carbon Dioxide 28 mEq/L (23-29); Chloride 107 mEq/L (98-107); Glucose 111 mg/dL (70-105); Osmolality,Calculated 299 (280-300); Potassium 3.8 mEq/L (3.5-5.1); Sodium 142 mEq/L (136-145); eGFR For Non-African Americans 59 (> 60)
--- NOTE | 2018-06-02 08:38 | Discharge Summary ---
Date of Encounter: 06/02/18 Time of Encounter: 08:25 - Discharge Diagnosis (1) Chest pain Priority: Primary Status: Resolved Qualifiers: Chest pain type: unspecified Qualified Code(s): R07.9 - Chest pain, unspecified (2) Azotemia Priority: Secondary Status: Acute (3) Pulmonary fibrosis Priority: Secondary Status: Chronic Hospital course: Ms. Phillips is a 62 year old female who came to emergency room at the insistence of family members after she told them she had developed some discomfort in her chest earlier in the day. She described it as he most " severe heartburn" she had ever experienced. She reports it lasted approximately 10 minutes. She took her usual daily dose of Prilosec with gradual relief. Family was concerned so she came to emergency room although she was asymptomatic by then. Evaluation showed leukocytosis with left shift. She was admitted to [facility] floor for ongoing care needs. Initial orders were written by the emergency room physician. I saw her on June 01 and performed a history and physical. When I saw her the chest discomfort had resolved. Repeat cardiac enzymes showed no evidence of myocardial damage. She had no further recurrence of chest pain/heartburn. Creatinine improved to 0.88 on June 01 but elba slightly to 0.95 on June 02 with estimated GFR 59. I suspect she has chronic kidney disease stage 2-3. She was started empirically on Levaquin. WBC improved to 12.5 with resolution of left shift by day of discharge. She will continue with oral Levaquin and probiotic for 3 additional days at discharge. BN peptide was normal at 56. MCV remained elevated during her hospital stay. Review of past history shows previous diagnosis of B12 deficiency. Her PCP can monitor this and do further workup for macrocytosis etiology as needed. On June 02 she was stable for discharge home. She will follow with her PCP Janet Mccray CNP within 1 week. - Time Spent with Patient Total time spent providing and/or coordinating discharge services: - Discharge Medications Prescriptions: Lactobacillus [Culturelle] 1 each PO BID #6 cap.sprink levoFLOXacin [Levaquin] 500 mg PO DAILY #3 tablet Home Medications: Cyclobenzaprine [Flexeril] 10 mg PO TID 08/28/17 [History] Pravastatin Sodium [Pravachol] 20 mg PO DAILY 08/28/17 [History] Topiramate [Topamax] 100 mg PO BID 08/28/17 [History] Gabapentin [Neurontin] 600 mg PO TID 02/28/18 [History] Montelukast [Singulair] 10 mg PO DAILY 02/28/18 [History] Omeprazole [PriLOSEC] 20 mg PO DAILY 02/28/18 [History] Guaifenesin [Mucinex] 600 mg PO Q12H PRN 05/04/18 [History] predniSONE [PredniSONE] 10 mg PO DAILY 05/04/18 [History] Cyanocobalamin (B-12) [Vitamin B12] 1,000 mcg PO DAILY #30 tablet 05/07/18 [Rx] Budesonide/Formoterol 80/4.5 [Symbicort 80/4.5] 2 puff IH BID 05/31/18 [History ] hydrOXYzine HCl [Hydroxyzine HCl] 25 mg PO TID PRN 05/31/18 [History] Lactobacillus [Culturelle] 1 each PO BID #6 cap.sprink 06/02/18 [Rx] levoFLOXacin [Levaquin] 500 mg PO DAILY #3 tablet 06/02/18 [Rx] Allergies/Adverse Reactions: 3 Allergy/AdvReac Type Severity Reaction Status Date / Time acetaminophen AdvReac Hallucinati Verified 08/28/17 17:06 [From Darvocet-N] ng azithromycin [From Zithromax] AdvReac Rash Verified 08/31/17 07:54 duloxetine [From Cymbalta] AdvReac Nausea Verified 08/28/17 17:06 fentanyl AdvReac Vomiting Verified 08/28/17 17:06 propoxyphene AdvReac Hallucinati Verified 08/28/17 17:06 [From Darvocet-N] ng Sulfa (Sulfonamide AdvReac Rash Verified 08/28/17 17:06 Antibiotics) Tetracycline AdvReac Nausea Verified 08/28/17 17:06 Date of admission: 05/31/18 17:39 Primary care physician: Janet Mccray - Constitutional Vitals: Temp Pulse Resp BP Pulse Ox 98.3 F 86 18 119/67 92 06/02/18 04:00 06/02/18 04:00 06/02/18 04:00 06/02/18 04:00 06/02/18 04:00 - Patient Status Disposition: Home, Self-Care Condition: Good - Discharge Instructions Follow Up With: Janet Mccray CNP [Primary Care Provider] - 1 week - Diet and Activity Activity: resume usual activities as tolerated, wear oxygen at all times Diet: advance to your usual diet
[2018-06-02 08:53] VITALS: BP 102/65
[2018-06-02] MEDS: Budesonide/Formoterol 80/4.5 MDI IH SCH (09:31)
[2018-06-02] MEDS: Lactobacillus 1 EACH CAP.SPRINK PO SCH (10:37)
[2018-06-02] MEDS: predniSONE 10 MG TABLET PO SCH (10:37)
[2018-06-02] MEDS: Topiramate 100 MG TABLET PO SCH (10:37)
[2018-06-02] MEDS: levoFLOXacin 500 MG TABLET PO SCH (10:38)
[2018-06-02] MEDS: Gabapentin 300 MG CAPSULE PO SCH (10:38)
[2018-06-02] MEDS: Cyanocobalamin (B-12) 1,000 MCG TABLET PO SCH (10:42)
== END 2018-06-02 13:45 | disposition home or self-care (01) ==
LOC: INPPIK 16:09 → EMEROOPIK 16:09 → INPPIK 18:09
PROVIDERS: ADMIT Internal Medicine; ATTEND Internal Medicine

== ENCOUNTER 2018-07-16 15:58 | Observation (INO) ==
--- NOTE | 2018-07-16 16:12 | Emergency Department Note ---
Disposition Clinical Impression: Acute exacerbation of chronic obstructive airways disease, Pulmonary fibrosis, Hypoxia Disposition: Admitted As Inpatient Condition: Fair Referrals: Janet Mccray CNP [Primary Care Provider] - Forms: ED Satisfaction Letter Time of Disposition: 17:34 (wendy obsv) SOB HPI - General Chief Complaint: ED Shortness of Breath/Dyspnea Stated Complaint: SOB saturation in 70's when ems arrived. Time Seen by Provider: 07/16/18 16:05 Source: patient, EMS Mode of arrival: EMS Limitations: no limitations Nursing Notes Reviewed: Yes Vital Signs Reviewed: Yes - History of Present Illness 63-year-old female with a history of pulmonary fibrosis history of lung cancer with resection who presents emergency room visit increasing charts breath unable to move about in the house that she has to stay in bed most the day patient states that she was found to have sats of 70% by her home health nurse she typically runs 88-92 4 L nasal cannula as result though she's been bringing up large amounts of phlegm she denies any blurred vision double vision loss of vision she denies any lightheadedness but has no dizziness she's had charts breath cough congestion difficulty with ambulation she's had no swelling no edema in the legs patient states that she was hypoxic which is why she called the squad today All systems have been reviewed and are otherwise negative Pt Subjective Complaint: shortness of breath Onset (ago): day(s) Context: recent illness Severity: moderate, severe Consistency/Duration: gradually worsening Improves with: oxygen Worsens with: exertion Known history of: COPD, recurrent pneumonia, other (Pulmonary fibrosis) Associated symptoms: Reports: pain with inspiration, cough, wheezing, sputum production. Denies: chest pain, fever, orthopnea, lower extremity pain, polyuria, polydipsia, parasthesias, palpitations, hemoptysis, diaphoresis, nausea/vomiting, syncope, abdominal pain, rash, sense of impending doom Treatment prior to arrival: oxygen, bronchodilator Cough present: Yes Cough Description: Involuntary, Barking Cough Frequency: Intermittent Sputum production: Yes Sputum Amount: Small Sputum Color: Yellow, Green - Related Data Home Medications Medication Instructions Recorded Confirmed Cyclobenzaprine [Flexeril] 10 mg PO TID 08/28/17 06/20/18 Pravastatin Sodium [Pravachol] 20 mg PO DAILY 08/28/17 06/20/18 Topiramate [Topamax] 100 mg PO BID 08/28/17 06/20/18 Gabapentin [Neurontin] 400 mg PO TID 02/28/18 06/20/18 Montelukast [Singulair] 10 mg PO DAILY 02/28/18 06/20/18 Omeprazole [PriLOSEC] 20 mg PO DAILY 02/28/18 06/20/18 Guaifenesin [Mucinex] 600 mg PO Q12H PRN 05/04/18 06/20/18 Budesonide/Formoterol 80/4.5 2 puff IH BID 05/31/18 06/20/18 [Symbicort 80/4.5] hydrOXYzine HCl [Hydroxyzine HCl] 25 mg PO TID PRN 05/31/18 06/20/18 Albuterol Sulfate [Albuterol 1 puff IH Q4-6H PRN 06/20/18 06/20/18 Inhaler] Aspirin [Lo-Dose Aspirin EC] 81 mg PO DAILY 06/20/18 06/20/18 Lisinopril [Zestril] 10 mg PO DAILY 06/20/18 06/20/18 Metoprolol [Lopressor] 12.5 mg PO DAILY 06/20/18 06/20/18 Previous Rx's Medication Instructions Recorded Cyanocobalamin (B-12) [Vitamin B12] 1,000 mcg PO DAILY #30 tablet 05/07/18 levoFLOXacin [Levaquin] 750 mg PO DAILY 7 Days #7 tablet 06/20/18 Allergies Allergy/AdvReac Type Severity Reaction Status Date / Time acetaminophen AdvReac Hallucinati Verified 08/28/17 17:06 [From Darvocet-N] ng azithromycin [From Zithromax] AdvReac Rash Verified 08/31/17 07:54 duloxetine [From Cymbalta] AdvReac Nausea Verified 08/28/17 17:06 fentanyl AdvReac Vomiting Verified 08/28/17 17:06 propoxyphene AdvReac Hallucinati Verified 08/28/17 17:06 [From Darvocet-N] ng Sulfa (Sulfonamide AdvReac Rash Verified 08/28/17 17:06 Antibiotics) tetracycline [Tetracycline] AdvReac Nausea Verified 08/28/17 17:06 All systems ED: reviewed and negative except as stated. Limitations: ROS unobtainable due to patients medical condition Constitutional: Reports: weakness. Denies: fever, chills Eyes: Denies: eye pain, eye discharge, vision change ENT ED: Denies: ear pain, throat pain Cardiovascular: Reports: dyspnea on exertion. Denies: chest pain, palpitations, edema, syncope Respiratory: Reports: cough, dyspnea, wheezes Gastrointestinal: Denies: abdominal pain, nausea, vomiting Genitourinary: Denies: urgency, dysuria, frequency Musculoskeletal: Denies: back pain Integumentary: Denies: rash, abrasion Neurological: Denies: headache Psychiatric: Denies: anxiety, depression, suicidal thoughts Endocrine: Denies: fatigue Hematological/Lymphatic: Denies: easy bleeding Allergic/Immunologic: Denies: facial swelling Past Medical History - Past Medical History Attestation: Yes The following information was validated with the patient. 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 - Social History Smoking Status: Former smoker Smokeless Tobacco Status: No Alcohol use: Reports: none Drug use: Reports: none Physical Exam - General Limitations: no limitations General appearance: alert, in no apparent distress, obese - Head Head exam: atraumatic, normocephalic, normal inspection - Eye Eye exam: Present: normal appearance, PERRL, EOMI - ENT ENT exam: normal exam, normal oropharynx, mucous membranes moist, TM's normal bilaterally, normal external ear exam - Neck Neck exam: Present: normal inspection, full ROM, trachea midline - Chest Chest inspection: Present: normal inspection, symmetric chest wall rise - Respiratory Respiratory exam: Present: normal lung sounds bilaterally, wheezes, prolonged expiratory phase - Cardiovascular Cardiovascular exam: Present: regular rate, normal rhythm, normal heart sounds - Abdominal Exam Abdominal exam: Present: soft, Non-Tender, normal bowel sounds. Absent: mass, pulsatile mass - Extremities Exam Extremities exam: Present: normal inspection, full ROM, normal capillary refill. Absent: tenderness, pedal edema, joint swelling, calf tenderness - Expanded Lower Extremity Exam Neurovascular/Tendon exam: Present: normal capillary refill, normal fine/light touch Gait: observed and normal - Back Exam Back exam: Present: normal inspection, full ROM. Absent: muscle spasm - Neurological Exam Neurological exam: Present: alert, oriented X3, CN II-XII intact, normal gait - Psychiatric Psychiatric exam: Present: normal affect, normal mood - Skin Skin exam: Present: warm, dry, intact, normal color Course Course Narrative: Patient seen exam patient is an aerosol treatment was patient continues to still drop down into the mid 80s than her typical as result patient will be admitted for observation transferred to [facility] stable Vital Signs Temperature 98.1 F 07/16/18 16:01 Pulse Rate 98 07/16/18 16:01 Respiratory Rate 24 07/16/18 16:01 Blood Pressure 123/61 07/16/18 16:01 O2 Sat by Pulse Oximetry 87 07/16/18 16:01 Temperature 98.1 F 07/16/18 16:01 Pulse Rate 98 07/16/18 17:09 Respiratory Rate 24 07/16/18 17:09 Blood Pressure 113/71 07/16/18 16:30 O2 Sat by Pulse Oximetry 89 07/16/18 17:09 Oxygen Delivery Oxygen Delivery Nasal Cannula Shortness of Breath/Dyspnea - Differential Diagnosis Likely: acute exacerbation of chronic obstructive airways disease, pneumonia - Medical Records Medical records reviewed: Yes I reviewed the patient's medical records. - Lab Data Lab results reviewed: Yes I reviewed the patient's lab results. Result diagrams: 07/16/18 16:41 07/16/18 16:41 Lab Results 07/16/18 07/16/18 07/16/18 Range/Units 16:41 16:41 16:41 WBC 15.2 H (4.3-11.1) K/mcL RBC 4.20 (3.82-4.97) M/mcL Hgb 13.3 (11.5-15.4) g/dL Hct 41.0 (35.3-44.9) % MCV 97.6 (83.0-100.0) fL MCH 31.7 (28.0-33.3) pg MCHC 32.4 (31.6-35.5) g/dL RDW 12.1 (11.5-14.5) % Plt Count 221 (140-400) K/mcL MPV 11.1 (9.4-12.4) fL Immature Gran % 1.7 (0-4) % Seg Neutrophils % 83.6 % Lymphocytes % 10.0 % Monocytes % 3.9 % Eosinophils % 0.3 % Basophils % 0.5 % Neutrophils # 12.7 H (1.6-8.9) K/mcL Lymphocytes # 1.5 (0.6-4.6) K/mcL Monocytes # 0.6 (0.0-1.3) K/mcL Eosinophils # 0.1 (0.0-0.6) K/mcL Basophils # 0.1 (0.0-0.2) K/mcL PT 10.9 (9.4-12.1) Seconds INR 1.0 APTT 28.0 (26.0-36.0) Seconds Sodium (136-145) mEq/L Potassium (3.5-5.1) mEq/L Chloride (98-107) mEq/L Carbon Dioxide (23-29) mEq/L BUN (8-23) mg/dL Creatinine (0.60-1.20) mg/dL Est GFR ( Amer) (> 60) Est GFR (Non-Af Amer) (> 60) BUN/Creatinine Ratio (6-26) Glucose (70-105) mg/dL Calculated Osmolality (280-300) Calcium (8.6-10.3) mg/dL Total Bilirubin (0.3-1.0) mg/dL AST (13-39) Units/L ALT (7-52) Units/L Alkaline Phosphatase (34-104) Units/L Troponin I (< 0.04) ng/mL B-Natriuretic Peptide (Less than 100) pg/mL Serum Total Protein (6.4-8.9) g/dL Albumin (3.5-5.7) g/dL Globulin (2.4-3.5) g/dL Albumin/Globulin Ratio (1.1-2.2) 07/16/18 07/16/18 Range/Units 16:41 16:41 WBC (4.3-11.1) K/mcL RBC (3.82-4.97) M/mcL Hgb (11.5-15.4) g/dL Hct (35.3-44.9) % MCV (83.0-100.0) fL MCH (28.0-33.3) pg MCHC (31.6-35.5) g/dL RDW (11.5-14.5) % Plt Count (140-400) K/mcL MPV (9.4-12.4) fL Immature Gran % (0-4) % Seg Neutrophils % % Lymphocytes % % Monocytes % % Eosinophils % % Basophils % % Neutrophils # (1.6-8.9) K/mcL Lymphocytes # (0.6-4.6) K/mcL Monocytes # (0.0-1.3) K/mcL Eosinophils # (0.0-0.6) K/mcL Basophils # (0.0-0.2) K/mcL PT (9.4-12.1) Seconds INR APTT (26.0-36.0) Seconds Sodium 136 (136-145) mEq/L Potassium 3.9 (3.5-5.1) mEq/L Chloride 101 (98-107) mEq/L Carbon Dioxide 26 (23-29) mEq/L BUN 31 H (8-23) mg/dL Creatinine 1.07 (0.60-1.20) mg/dL Est GFR ( Amer) > 60 (> 60) Est GFR (Non-Af Amer) 51 L (> 60) BUN/Creatinine Ratio 29 H (6-26) Glucose 160 H (70-105) mg/dL Calculated Osmolality 292 (280-300) Calcium 8.8 (8.6-10.3) mg/dL Total Bilirubin 0.2 L (0.3-1.0) mg/dL AST 13 (13-39) Units/L ALT 13 (7-52) Units/L Alkaline Phosphatase 65 (34-104) Units/L Troponin I < 0.03 (< 0.04) ng/mL B-Natriuretic Peptide 30 (Less than 100) pg/mL Serum Total Protein 6.4 (6.4-8.9) g/dL Albumin 3.7 (3.5-5.7) g/dL Globulin 2.7 (2.4-3.5) g/dL Albumin/Globulin Ratio 1.4 (1.1-2.2) - Radiology Data Radiology results reviewed: Yes I reviewed the patient's radiology results. Critical Care Time Critical Care Time: Yes Total Critical Care Time: 35 Attestation: Critical care performed: 35 minutes result the patient being and pulmonary fibrosis with recurrent hypoxia requiring increasing O2 bronchopulmonary toilet Time is exclusive of separately billable procedures. Time includes: direct patient care, patient reassessment, coordination of patient care, interpretation of data (laboratory data, radiology data, and respiratory data), review of patient's medical records, medical consultation and documentation of patient care. Procedures included in critical care time: Procedures excluded from critical care time:
[2018-07-16 16:55] LABS: Basophils # 0.1 K/mcL (0.0-0.2); Basophils % 0.5 %; Eosinophils % 0.3 %; Hemoglobin 13.3 g/dL (11.5-15.4); Immature Granulocytes % 1.7 % (0-4); Lymphocytes # 1.5 K/mcL (0.6-4.6); Mean Corpuscular HGB Conc 32.4 g/dL (31.6-35.5); Mean Corpuscular Hemoglobin 31.7 pg (28.0-33.3); Mean Corpuscular Volume 97.6 fL (83.0-100.0); Mean Platelet Volume 11.1 fL (9.4-12.4); Monocytes # 0.6 K/mcL (0.0-1.3); Monocytes % 3.9 %; Neutrophils # 12.7 K/mcL (1.6-8.9); Platelet Count 221 K/mcL (140-400); Red Cell Distribution Width 12.1 % (11.5-14.5); Segmented Neutrophils % 83.6 %
[2018-07-16 16:56] LABS: Eosinophils # 0.1 K/mcL (0.0-0.6)
[2018-07-16 17:04] LABS: Prothrombin Time 10.9 Seconds (9.4-12.1)
[2018-07-16 17:13] LABS: Alanine Aminotransferase 13 Units/L (7-52); Albumin 3.7 g/dL (3.5-5.7); Albumin/Globulin Ratio 1.4 (1.1-2.2); Alkaline Phosphatase 65 Units/L (34-104); Aspartate Amino Transferase 13 Units/L (13-39); BUN/Creatinine Ratio 29 (6-26); Bilirubin,Total 0.2 mg/dL (0.3-1.0); Blood Urea Nitrogen 31 mg/dL (8-23); Calcium 8.8 mg/dL (8.6-10.3); Carbon Dioxide 26 mEq/L (23-29); Chloride 101 mEq/L (98-107); Globulin 2.7 g/dL (2.4-3.5); Glucose 160 mg/dL (70-105); Osmolality,Calculated 292 (280-300); Potassium 3.9 mEq/L (3.5-5.1); Sodium 136 mEq/L (136-145); Total Protein 6.4 g/dL (6.4-8.9); eGFR For Non-African Americans 51 (> 60)
[2018-07-16 17:14] LABS: Troponin I < 0.03 ng/mL (< 0.04)
[2018-07-16] MEDS ORDERED: methylPREDNISolone 125 MG/2 ML VIAL IVP ONE (17:31)
[2018-07-16] MEDS ORDERED: Levofloxacin 500 MG/100 ML 500 MG/100 ML BAG IVPB ONE ×2 (17:32→18:02)
[2018-07-16] MEDS ORDERED: Albuterol 2.5 MG/3 ML NEBULIZER IH PRN (18:02)
[2018-07-16] MEDS ORDERED: Naloxone 0.4 MG/ML INJ IVP PRN (18:02)
[2018-07-16] MEDS: MethylPREDNISolone 40 MG/ML VIAL IVP SCH (19:25)
[2018-07-16] MEDS: Gabapentin 400 MG CAPSULE PO SCH (19:42)
[2018-07-16] MEDS: Topiramate 100 MG TABLET PO SCH (19:43)
[2018-07-16] MEDS: 0.9 % Sodium Chloride 1,000 ML IVC SCH (19:44)
[2018-07-16] MEDS: Ipratropium/Albuterol Neb 3 ML IH SCH (21:34)
[2018-07-17] MEDS: MethylPREDNISolone 40 MG/ML VIAL IVP SCH ×3 (01:46→15:59)
[2018-07-17] MEDS: Ipratropium/Albuterol Neb 3 ML IH SCH ×2 (05:24→10:06)
[2018-07-17 06:10] LABS: Basophils # 0.1 K/mcL (0.0-0.2); Basophils % 0.4 %; Hematocrit 41.6 % (35.3-44.9); Hemoglobin 13.5 g/dL (11.5-15.4); Immature Granulocytes % 2.1 % (0-4); Lymphocytes # 0.8 K/mcL (0.6-4.6); Lymphocytes % 6.3 %; Mean Corpuscular HGB Conc 32.5 g/dL (31.6-35.5); Mean Corpuscular Hemoglobin 31.7 pg (28.0-33.3); Mean Corpuscular Volume 97.7 fL (83.0-100.0); Mean Platelet Volume 11.5 fL (9.4-12.4); Monocytes # 0.5 K/mcL (0.0-1.3); Monocytes % 3.5 %; Neutrophils # 11.4 K/mcL (1.6-8.9); Platelet Count 256 K/mcL (140-400); Red Blood Count 4.26 M/mcL (3.82-4.97); Red Cell Distribution Width 12.2 % (11.5-14.5); Segmented Neutrophils % 87.7 %
[2018-07-17 06:32] LABS: BUN/Creatinine Ratio 32 (6-26); Blood Urea Nitrogen 30 mg/dL (8-23); Carbon Dioxide 22 mEq/L (23-29); Chloride 103 mEq/L (98-107); Glucose 163 mg/dL (70-105); Osmolality,Calculated 292 (280-300); Potassium 4.1 mEq/L (3.5-5.1); Sodium 136 mEq/L (136-145); eGFR For Non-African Americans 60 (> 60)
[2018-07-17] MEDS: Topiramate 100 MG TABLET PO SCH ×2 (08:04→20:27)
[2018-07-17] MEDS: Gabapentin 400 MG CAPSULE PO SCH ×3 (08:04→20:26)
[2018-07-17] MEDS: Cyanocobalamin (B-12) 1,000 MCG TABLET PO SCH (08:04)
[2018-07-17] MEDS: Aspirin Enteric Coated 81 MG Tablet PO SCH (08:05)
[2018-07-17] MEDS: cefTRIAXone 1,000 MG in Water for inj. (sterile) 20 ML 10 ML IVP SCH (08:06)
--- NOTE | 2018-07-17 14:24 | Internal Med History&Physical ---
Date of Encounter: 07/17/18 Time of Encounter: 12:25 Assessment and Plan (1) Pneumonia Current visit: No Status: Acute Strongly suspected from clinical findings without radiographic confirmation. Continue Rocephin and Zithromax. Add lactobacillus. Qualifiers: Pneumonia type: due to unspecified organism Laterality: bilateral Lung location: lower lobe of lung Qualified Code(s): J18.1 - Lobar pneumonia, unspecified organism (2) B12 deficiency Current visit: Yes Status: Acute Continue oral B12 supplement. (3) Azotemia Current visit: No Status: Acute Continue IV fluids and monitor labs. (4) Pulmonary fibrosis Current visit: Yes Status: Chronic Continue oxygen and present pulmonary regimen. Internal Medicine - H&P: HPI Chief complaint: Dyspnea Admitted From: Emergency Dept Plans for Post Hospital Care: Home History of present illness: Ms. Phillips is a 63 year old female who came to emergency room stating she had increased dyspnea over the preceding days. She had minimal increase in cough above her baseline. She noticed elevated heart rate and blood pressure at home. She was evaluated in emergency room and felt to have exacerbation of COPD with hypoxemia. She was admitted to [facility] floor for ongoing care needs. Her respiratory history is significant for having smoked from age [age] total of 47 years. She quit smoking August 2017. She smoked up to 2 packs per day. She had PFTs 12/09/2016 which showed normal FEV1/FVC but had significant decrease in DLCO consistent with pulmonary fibrosis. She reports being hospitalized at [facility] a few months ago and was told she had pulmonary fibrosis and right-sided heart failure with pulmonary hypertension. She wears oxygen 03/04. 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 She did not have postoperative chemotherapy or XRT. Past Med Surg Social Fam HX - Past Medical History Medical history: arthritis, atrial fibrillation, cancer, CHF, COPD, GERD, hypertension Additional medical history: left upper lobe cancer surgery, pulmonary fibrosis, pulmonary hypertension, spinal stenosis Psychiatric history: anxiety, depression, panic disorder - Past Surgical History Surgical History: cataract, cholecystectomy Additional surgical history: bilat breast reduction, teeth extraction, tubal - Social History Smoking Status: Former smoker Smokeless Tobacco Status: No Alcohol use: none Drug use: none - Family History Mother History Unknown: Yes Internal Medicine - H&P: Meds Cyclobenzaprine [Flexeril] 10 mg PO TID 08/28/17 [History] Pravastatin Sodium [Pravachol] 20 mg PO DAILY 08/28/17 [History] Topiramate [Topamax] 100 mg PO BID 08/28/17 [History] Gabapentin [Neurontin] 400 mg PO TID 02/28/18 [History] Montelukast [Singulair] 10 mg PO DAILY 02/28/18 [History] Omeprazole [PriLOSEC] 20 mg PO DAILY 02/28/18 [History] Guaifenesin [Mucinex] 600 mg PO Q12H PRN 05/04/18 [History] Cyanocobalamin (B-12) [Vitamin B12] 1,000 mcg PO DAILY #30 tablet 05/07/18 [Rx] Budesonide/Formoterol 80/4.5 [Symbicort 80/4.5] 2 puff IH BID 05/31/18 [History] hydrOXYzine HCl [Hydroxyzine HCl] 25 mg PO TID PRN 05/31/18 [History] Albuterol Sulfate [Albuterol Inhaler] 1 puff IH Q4-6H PRN 06/20/18 [History] Aspirin [Lo-Dose Aspirin EC] 81 mg PO DAILY 06/20/18 [History] Lisinopril [Zestril] 10 mg PO DAILY 06/20/18 [History] Metoprolol [Lopressor] 12.5 mg PO DAILY 06/20/18 [History] levoFLOXacin [Levaquin] 750 mg PO DAILY 7 Days #7 tablet 06/20/18 [Rx] Allergy/AdvReac Type Severity Reaction Status Date / Time acetaminophen AdvReac Hallucinati Verified 08/28/17 17:06 [From Darvocet-N] ng azithromycin [From Zithromax] AdvReac Rash Verified 08/31/17 07:54 duloxetine [From Cymbalta] AdvReac Nausea Verified 08/28/17 17:06 fentanyl AdvReac Vomiting Verified 08/28/17 17:06 propoxyphene AdvReac Hallucinati Verified 08/28/17 17:06 [From Darvocet-N] ng Sulfa (Sulfonamide AdvReac Rash Verified 08/28/17 17:06 Antibiotics) tetracycline [Tetracycline] AdvReac Nausea Verified 08/28/17 17:06 All Systems PM: A 10-system review of systems was performed and is negative for pertinent findings except as documented above in the HPI. Review of systems: Review of systems from her May 2018 [facility] hospitalization were reviewed and revised as below. Gen.: Her weight decreased from 71.696 kg on 08/30/2017 to 67.585 kg April 2018 but increased to 76.685 kg now Cardiovascular: She has history of hypertension and atrial fibrillation. She denies NV heart failure DVT or pulmonary embolus. She has declined OAC for atrial fib because of history of epistaxis. She reports epistaxis has been present since she started using oxygen 03/04 approximately September 2017. Respiratory: As per history of present illness GI: She has had cholecystectomy. She denies disorders of her liver or exocrine pancreas : She denies disorders of her kidney or bladder Neurologic: She has frequent headaches. She has neuropathy and chronic low back pain. She denies large distribution strokes. 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 She did not have postoperative chemotherapy or XRT. Most recent chest CT was 02/27/2018 which showed no evidence of malignancy. She has history of anemia with workup 05/05/2018 showing B12 198. She was started on B12 supplement following a single IM injection. Anemia has resolved on current labs. Psychiatric: She has anxiety and panic attacks. She denies other mental health issues Musk skeletal: She has spinal stenosis. She has DJD but no known gout or other bone joint or muscle disorders. - Constitutional Vitals: Temp Pulse Resp BP Pulse Ox 98.2 F 104 18 123/79 90 07/17/18 11:19 07/17/18 12:42 07/17/18 11:19 07/17/18 12:42 07/17/18 11:19 Exam: Gen.: She is a well-developed well-nourished female resting comfortably in bed who appears slightly dyspneic HEENT: Head is atraumatic and normocephalic. Eyes: EOMI. There is no scleral icterus. Mouth: Mucosa is moist. Neck: Supple and nontender. There is no thyromegaly or adenopathy noted. Heart: Regular without murmurs gallops or ectopics Lungs: She has diminished breath sounds diffusely. There are inspiratory crackles bilaterally. No expiratory wheezing is heard. She has egophony in the left posterior upper and lower lung chao. Abdomen: Soft and nontender. No masses or guarding are noted. Extremities: There is no cyanosis edema or clubbing noted. Dorsalis pedis and posttibial pulses are trace to 1+ palpable bilaterally. Neurologic: Mental status: She is talkative and a good historian. Cranial nerves: Smile is symmetric. Forehead wrinkles bilaterally. Tongue protrudes midline. EOMI. Motor: There is no pronator drift. Cerebellar: Finger to nose is intact bilaterally. Skin: Warm and dry Internal Med - H&P Results - Labs CBC & Chem 7: 07/17/18 05:15 07/17/18 05:15 Labs: Short CBC 07/16/18 07/17/18 Range/Units 16:41 05:15 WBC 15.2 H 13.0 H (4.3-11.1) K/mcL Hgb 13.3 13.5 (11.5-15.4) g/dL Hct 41.0 41.6 (35.3-44.9) % Plt Count 221 256 (140-400) K/mcL Neutrophils # 12.7 H 11.4 H (1.6-8.9) K/mcL BMP 07/16/18 07/17/18 16:41 05:15 Sodium 136 136 Potassium 3.9 4.1 Chloride 101 103 Carbon Dioxide 26 22 L BUN 31 H 30 H Creatinine 1.07 0.94 Glucose 160 H 163 H Calcium 8.8 9.0 Cardiac Enzymes 07/16/18 Range/Units 16:41 Troponin I < 0.03 (< 0.04) ng/mL Liver Function 07/16/18 Range/Units 16:41 Total Bilirubin 0.2 L (0.3-1.0) mg/dL AST 13 (13-39) Units/L ALT 13 (7-52) Units/L Alkaline Phosphatase 65 (34-104) Units/L Albumin 3.7 (3.5-5.7) g/dL - Impressions ITS Impressions Chest X-Ray 07/16/18 16:39 IMPRESSION: No significant interval change since previous examination. Unchanged findings of of pulmonary fibrosis. No evidence of new pulmonary consolidation. D/ / Sudheer Poole MD / Sudheer Poole MD Interpreting Provider: Sudheer Poole MD
[2018-07-17] MEDS: predniSONE 10 MG TABLET PO SCH (15:54)
[2018-07-17] MEDS: 0.9 % Sodium Chloride 1,000 ML IVC SCH (15:55)
[2018-07-17] MEDS: traMADol 50 MG TABLET PO PRN ×2 (16:05→20:26)
--- NOTE | 2018-07-17 16:44 | Electrocardiograph Report ---
[address] [place], [place] [address] Test Date: 2018-07-16 Pat Name: Nunu Phillips Department: [id number] Room: [facility] Gender: F [employer] Mdm Developer: [id number] : 1955 Requested By: Johnson Miguel Order Number: [id number] Reading MD: Isabella Chambers Measurements Intervals [place] Rate: 101 P: 27 OK: 151 QRS: 89 QRSD: 82 T: 29 QT: 330 QTc: 388 Interpretive Statements SINUS TACHYCARDIA WITH FREQUENT SUPRAVENTRICULAR PREMATURE COMPLEXES LOW QRS VOLTAGE IN PRECORDIAL LEADS POSSIBLE RIGHT VENTRICULAR CONDUCTION DELAY NONSPECIFIC ST & T-WAVE ABNORMALITY ABNORMAL RHYTHM ECG Electronically Signed On 07-17-2018 16:42:28 EST by Isabella Chambers
[2018-07-17] MEDS: Levofloxacin 500 MG/100 ML 500 MG/100 ML BAG IVPB SCH (18:32)
[2018-07-17] MEDS: Lactobacillus 1 EACH CAP.SPRINK PO SCH (20:26)
[2018-07-18] MEDS: traMADol 50 MG TABLET PO PRN ×4 (03:37→21:28)
[2018-07-18 04:38] LABS: Basophils # 0.1 K/mcL (0.0-0.2); Basophils % 0.4 %; Eosinophils % 0.1 %; Hematocrit 37.7 % (35.3-44.9); Hemoglobin 12.5 g/dL (11.5-15.4); Immature Granulocytes % 2.1 % (0-4); Lymphocytes # 2.5 K/mcL (0.6-4.6); Mean Corpuscular HGB Conc 33.2 g/dL (31.6-35.5); Mean Corpuscular Hemoglobin 32.3 pg (28.0-33.3); Mean Corpuscular Volume 97.4 fL (83.0-100.0); Mean Platelet Volume 11.2 fL (9.4-12.4); Monocytes # 1.7 K/mcL (0.0-1.3); Monocytes % 7.9 %; Platelet Count 234 K/mcL (140-400); Red Blood Count 3.87 M/mcL (3.82-4.97); Red Cell Distribution Width 12.2 % (11.5-14.5); Segmented Neutrophils % 77.5 %
[2018-07-18 04:39] LABS: Neutrophils # 16.4 K/mcL (1.6-8.9)
[2018-07-18 04:57] LABS: BUN/Creatinine Ratio 37 (6-26); Blood Urea Nitrogen 32 mg/dL (8-23); Calcium 8.9 mg/dL (8.6-10.3); Carbon Dioxide 24 mEq/L (23-29); Chloride 106 mEq/L (98-107); Glucose 126 mg/dL (70-105); Osmolality,Calculated 290 (280-300); Potassium 4.1 mEq/L (3.5-5.1); Sodium 136 mEq/L (136-145); eGFR For Non-African Americans > 60 (> 60)
[2018-07-18] MEDS: predniSONE 10 MG TABLET PO SCH ×2 (09:01→18:12)
[2018-07-18] MEDS: Lactobacillus 1 EACH CAP.SPRINK PO SCH ×2 (09:01→21:14)
[2018-07-18] MEDS: Aspirin Enteric Coated 81 MG Tablet PO SCH (09:01)
[2018-07-18] MEDS: Cyanocobalamin (B-12) 1,000 MCG TABLET PO SCH (09:02)
[2018-07-18] MEDS: Gabapentin 400 MG CAPSULE PO SCH ×3 (09:02→21:14)
[2018-07-18] MEDS: Topiramate 100 MG TABLET PO SCH ×2 (09:02→21:15)
[2018-07-18] MEDS: cefTRIAXone 1,000 MG in Water for inj. (sterile) 20 ML 10 ML IVP SCH (09:29)
--- NOTE | 2018-07-18 10:45 | Internal Med Progress Note ---
Date of Encounter: 07/18/18 Time of Encounter: 10:25 - Assessment and plan (1) Pneumonia Current Visit: No Status: Acute Assessment and plan: July 18. Continue Rocephin, Zithromax, and lactobacillus. Qualifiers: Pneumonia type: due to unspecified organism Laterality: bilateral Lung location: lower lobe of lung Qualified Code(s): J18.1 - Lobar pneumonia, unspecified organism (2) B12 deficiency Current Visit: Yes Status: Acute Assessment and plan: July 18. B12 level was 663. Discontinue supplement. (3) Azotemia Current Visit: No Status: Acute Assessment and plan: July 18. Creatinine decreased to 0.87 with estimated GFR greater than 60. Continue present management. (4) Pulmonary fibrosis Current Visit: Yes Status: Chronic Assessment and plan: July 18. Continue oxygen at present pulmonary regimen. Anticipate discharge home tomorrow (5) Tinea pedis Current Visit: Yes Status: Acute Assessment and plan: July 18. Order antifungal cream. Qualifiers: Laterality: left Qualified Code(s): B35.3 - Tinea pedis - Subjective Interval history: July 18. She has no new complaints except pain between her left fourth and fifth toe. - Constitutional Vitals: Temp Pulse Resp BP Pulse Ox 97.5 F L 78 18 103/70 90 07/18/18 06:47 07/18/18 06:47 07/18/18 06:47 07/18/18 06:47 07/18/18 09:33 Exam: She is resting comfortably in bed and appears in no acute distress. Her heart rate has slowed with increase in metoprolol. Lungs show no expiratory wheezing. Blood pressure remained stable. She has tinea pedis between the left fourth and fifth toe. I reviewed her medications and lab results. Internal Medicine: Result - Labs CBC & Chem 7: 07/18/18 04:23 07/18/18 04:23 Labs: Short CBC 07/18/18 Range/Units 04:23 WBC 21.1 H D (4.3-11.1) K/mcL Hgb 12.5 (11.5-15.4) g/dL Hct 37.7 (35.3-44.9) % Plt Count 234 (140-400) K/mcL Neutrophils # 16.4 H (1.6-8.9) K/mcL BMP 07/18/18 04:23 Sodium 136 Potassium 4.1 Chloride 106 Carbon Dioxide 24 BUN 32 H Creatinine 0.87 Glucose 126 H Calcium 8.9 - ABG Interpretation ABG results: PT/INR, D-dimer PT 10.9 Seconds (9.4-12.1) 07/16/18 16:41 Consult Discharge Plan - Plan Referrals: Janet Mccray, BETSY [Primary Care Provider] - 1 week
[2018-07-18] MEDS: Clotrimazole 1% CRM 15 GM TUBE TP SCH ×2 (14:41→21:15)
[2018-07-18] MEDS: hydrOXYzine pamoate 25 MG CAPSULE PO PRN ×2 (14:45→21:29)
[2018-07-18] MEDS: Levofloxacin 500 MG/100 ML 500 MG/100 ML BAG IVPB SCH (18:12)
[2018-07-19 06:02] LABS: Basophils # 0.1 K/mcL (0.0-0.2); Basophils % 0.6 %; Eosinophils # 0.1 K/mcL (0.0-0.6); Eosinophils % 0.4 %; Hematocrit 40.1 % (35.3-44.9); Immature Granulocytes % 2.3 % (0-4); Lymphocytes % 13.4 %; Mean Corpuscular HGB Conc 32.4 g/dL (31.6-35.5); Mean Corpuscular Volume 98.8 fL (83.0-100.0); Mean Platelet Volume 11.4 fL (9.4-12.4); Monocytes # 1.2 K/mcL (0.0-1.3); Monocytes % 8.1 %; Neutrophils # 11.1 K/mcL (1.6-8.9); Platelet Count 224 K/mcL (140-400); Red Blood Count 4.06 M/mcL (3.82-4.97); Red Cell Distribution Width 12.2 % (11.5-14.5); Segmented Neutrophils % 75.2 %
[2018-07-19 06:46] VITALS: BP 103/62
[2018-07-19] MEDS: predniSONE 10 MG TABLET PO SCH (08:09)
[2018-07-19] MEDS: Topiramate 100 MG TABLET PO SCH (08:09)
[2018-07-19] MEDS: Aspirin Enteric Coated 81 MG Tablet PO SCH (08:10)
[2018-07-19] MEDS: Gabapentin 400 MG CAPSULE PO SCH (08:10)
[2018-07-19] MEDS: Lactobacillus 1 EACH CAP.SPRINK PO SCH (08:10)
[2018-07-19] MEDS: cefTRIAXone 1,000 MG in Water for inj. (sterile) 20 ML 10 ML IVP SCH (08:10)
[2018-07-19] MEDS: Clotrimazole 1% CRM 15 GM TUBE TP SCH (08:10)
[2018-07-19] MEDS: traMADol 50 MG TABLET PO PRN ×2 (08:11→12:30)
--- NOTE | 2018-07-19 10:30 | Discharge Summary ---
Date of Encounter: 07/19/18 Time of Encounter: 10:20 - Discharge Diagnosis (1) Pneumonia Priority: Primary Status: Acute Qualifiers: Pneumonia type: due to unspecified organism Laterality: bilateral Lung location: lower lobe of lung Qualified Code(s): J18.1 - Lobar pneumonia, unspecified organism (2) B12 deficiency Priority: Secondary Status: Acute (3) Azotemia Priority: Secondary Status: Resolved (4) Pulmonary fibrosis Priority: Secondary Status: Chronic (5) Tinea pedis Priority: Secondary Status: Acute Qualifiers: Laterality: left Qualified Code(s): B35.3 - [facility] course: Ms. Phillips is a 63 year old female who came to emergency room stating she had increased dyspnea over the preceding days. She had minimal increase in cough above her baseline. She noticed elevated heart rate and blood pressure at home. She was evaluated in emergency room and felt to have exacerbation of COPD with hypoxemia. She was admitted to [facility] for ongoing care needs. Initial orders were written by the emergency room physician. I saw her on July 17 and performed a history and physical. She was started on Rocephin and Levaquin with lactobacillus. Steroids were also given. Her WBC initially declined but then elba to 21.1 on July 18. It decreased to 14.8 on day of discharge with resolution of left shift. She remained afebrile during her hospi manuel stay. On July 19 I felt she was back to her baseline breathing and she felt stable for discharge home. She will continue with antibiotic and probiotic for 3 additional days at discharge. Lisinopril was discontinued and azotemia improved with creatinine 0.87 on day prior to discharge. Her blood pressure remained well controlled off lisinopril and she will remain off this at discharge. Ibuprofen was discontinued. I told her she should try Tylenol maximum dose for analgesia and avoid NSAIDs to lessen risk of worsening renal function. She had tinea pedis between her left fourth and fifth toes. She will be prescribed antifungal cream for this. On July 19 she was stable for discharge home. She will follow with her PCP Janet Mccray CNP within 1 week. - Time Spent with Patient Total time spent providing and/or coordinating discharge services: - Discharge Medications Prescriptions: Cefuroxime PO [Ceftin] 500 mg PO Q12HR #6 tablet Econazole Nitrate 15 gm TP BID #1 tube Lactobacillus [Culturelle] 1 each PO BID #6 cap.sprink levoFLOXacin [Levaquin] 750 mg PO DAILY #3 tablet Home Medications: Cyclobenzaprine [Flexeril] 10 mg PO TID 08/28/17 [History] Pravastatin Sodium [Pravachol] 20 mg PO DAILY 08/28/17 [History] Topiramate [Topamax] 100 mg PO BID 08/28/17 [History] Gabapentin [Neurontin] 400 mg PO TID 02/28/18 [History] Montelukast [Singulair] 10 mg PO DAILY 02/28/18 [History] Omeprazole [PriLOSEC] 20 mg PO DAILY 02/28/18 [History] Guaifenesin [Mucinex] 600 mg PO Q12H PRN 05/04/18 [History] Cyanocobalamin (B-12) [Vitamin B12] 1,000 mcg PO DAILY #30 tablet 05/07/18 [Rx] Budesonide/Formoterol 80/4.5 [Symbicort 80/4.5] 2 puff IH BID 05/31/18 [History] hydrOXYzine HCl [Hydroxyzine HCl] 25 mg PO TID PRN 05/31/18 [History] Albuterol Sulfate [Albuterol Inhaler] 1 puff IH Q4-6H PRN 06/20/18 [History] Aspirin [Lo-Dose Aspirin EC] 81 mg PO DAILY 06/20/18 [History] Metoprolol [Lopressor] 12.5 mg PO DAILY 06/20/18 [History] Cefuroxime PO [Ceftin] 500 mg PO Q12HR #6 tablet 07/19/18 [Rx] Econazole Nitrate 15 gm TP BID #1 tube 07/19/18 [Rx] Lactobacillus [Culturelle] 1 each PO BID #6 cap.sprink 07/19/18 [Rx] levoFLOXacin [Levaquin] 750 mg PO DAILY #3 tablet 07/19/18 [Rx] Allergies/Adverse Reactions: Allergy/AdvReac Type Severity Reaction Status Date / Time acetaminophen AdvReac Hallucinati Verified 08/28/17 17:06 [From Darvocet-N] ng azithromycin [From Zithromax] AdvReac Rash Verified 08/31/17 07:54 duloxetine [From Cymbalta] AdvReac Nausea Verified 08/28/17 17:06 fentanyl AdvReac Vomiting Verified 08/28/17 17:06 propoxyphene AdvReac Hallucinati Verified 08/28/17 17:06 [From Yusuf] ng Sulfa (Sulfonamide AdvReac Rash Verified 08/28/17 17:06 Antibiotics) tetracycline [Tetracycline] AdvReac Nausea Verified 08/28/17 17:06 Date of admission: 07/16/18 17:44 Primary care physician: Janet Mccray Consults: 07/16/18 18:02 Consult to Nurse Navigator [CONS] Routine Comment: - Constitutional Vitals: Temp Pulse Resp BP Pulse Ox 97.4 F L 86 17 103/62 93 07/19/18 06:45 07/19/18 06:45 07/19/18 06:45 07/19/18 06:45 07/19/18 06:45 - Patient Status Disposition: Home, Self-Care Condition: Fair - Discharge Instructions Follow Up With: Janet Mccray, [employer] [Primary Care Provider] - 1 week - Diet and Activity Activity: resume usual activities as tolerated, wear oxygen at all times Diet: advance to your usual diet
== END 2018-07-19 13:40 | disposition home or self-care (01) ==
LOC: INPPIK 15:58 → EMEROOPIK 15:58 → INPPIK 18:19
PROVIDERS: ADMIT Internal Medicine; ATTEND Internal Medicine